=== PATIENT | female | born 1945 | race Two or more races ===

== ENCOUNTER 2024-03-15 08:58 | Emergency (ER) | payer OTHER, MEDICAID ==
[~2024-03-15] VITALS: Ht 152.4 cm; Wt 59.0 kg
[2024-03-15 09:45] VITALS: BP 136/62; PULSE 96; RESP 17; O2SAT 92
[2024-03-15 09:52] LABS: Basophils # (auto) 0 10 ^3/uL (0-0.2); Eosinophils # (auto) 0 10 ^3/uL (0-0.8); Lymphocytes # (auto) 0.2 10 ^3/uL (0.4-5.4); Lymphocytes % (auto) 3.2 % (10.0-50.0); Red Cell Distribution Width 14.6 % (11.8-14.3)
[2024-03-15 09:57] LABS: Basophils % (auto) 0.3 % (0.0-2.0); Hematocrit 38.8 % (36.0-46.0); Hemoglobin 13.6 g/dL (12.2-16.2); Mean Corpuscular Hgb Conc. 34.9 g/dL (32.0-36.0); Mean Corpuscular Volume 91.7 fL (80.0-100.0); Monocytes # (auto) 0.3 10 ^3/uL (0-1.3); Monocytes % (auto) 4.5 % (0.0-12.0); Neutrophils # (auto) 5.1 10 ^3/uL (1.6-8.6); Platelet Count (auto) 70 10^3/uL (140-450); Red Blood Cells 4.23 10^6/uL (4.0-5.20); White Blood Cell 5.5 10^3/uL (4.4-10.8)
[2024-03-15 10:07] LABS: Chloride 99 mmol/L (98-107); Potassium 3.5 mmol/L (3.5-5.1)
[2024-03-15 10:09] LABS: Calcium 9.3 mg/dL (8.7-10.4); Sodium 130 mmol/L (136-145)
[2024-03-15 10:13] LABS: Blood Urea Nitrogen 9 mg/dL (9-23)
[2024-03-15 10:14] LABS: BUN/Creatinine Ratio 10.2 (10.0-20.0)
--- NOTE | 2024-03-15 10:19 | ED.PDOC ---
SOB-HPI HPI Comments This is a pleasant 78-year-old female with a history of hypertension and a rthritis who was brought in by grandson with a chief complaint of URI symptoms for the last two weeks. Complains of a productive cough with yellow phlegm, shortness of breath, malaise, myalgia. Not taking medications for the symptoms. Chief Complaint: Flu like Time Seen by MD: 09:33 Reviewed notes: Nurses Notes, Medications, Allergies Information Source: Patient Mode of Arrival: Wheelchair Family History Family History: Reviewed,noncontributory to illness Social History Smoker: Non-Smoker Alcohol: Denies ETOH Use Drugs: Denies Drug Use All Other Systems: Reviewed and Negative (per hpi) Physical Exam General Appearance: No Apparent Distress, Normal HEENT: Normal ENT Inspection, Pharynx Normal, TMs Normal Neck: Full Range of Motion, Non-Tender, Normal, Normal Inspection Respiratory: Chest Non-Tender, Lungs Clear, No Accessory Muscle Use, No Respiratory Distress, Normal Breath Sounds Cardiovascular: No Edema, No JVD, No Murmur, No Gallop, Normal Peripheral Pulses, Regular Rate/Rhythm Breast Exam: Deferred Gastrointestinal: No Organomegaly, Non Tender, No Pulsatile Mass, Normal Bowel Sounds, Soft Genitalia: Deferred Pelvic: Deferred Rectal: Deferred Extremities: No calf tenderness, Normal capillary refill, Normal inspection, Normal range of motion, Non-tender, No pedal edema Musculoskeletal : Apperance: Normal Neurologic: Alert, No Motor Deficits, Normal Affect, Normal Mood, No Sensory Deficits Cerebellar Function: Normal Reflexes: Normal Skin: Dry, Normal Color, Warm Lymphatic: No Adenopathy Was a procedure done? Was a procedure done?: No Differential Dx Differential Diagnosis: Bronchitis, URI X-Ray, Labs, Meds, VS Vital Signs Date Time Temp Pulse Resp B/P (MAP) Pulse Ox O2 Delivery O2 Flow Rate FiO2 03/15/24 09:45 96 17 92 Room Air 03/15/24 09:45 101.5 96 17 136/62 (86) 92 101.5 03/15/24 09:05 101.5 96 17 136/62 (86) 92 Lab Test 03/15/24 09:38 03/15/24 09:37 Range/Units Influenza Type A Antigen Negative Negative Influenza Type B Antigen Negative Negative SARS-CoV-2 Antigen (Rapid) Positive NEGATIVE White Blood Count 5.5 4.4-10.8 10^3/uL Red Blood Count 4.23 4.0-5.20 10^6/uL Hemoglobin 13.6 12.2-16.2 g/dL Hematocrit 38.8 36.0-46.0 % Mean Corpuscular Volume 91.7 80.0-100.0 fL Mean Corpuscular Hemoglobin 32.0 28.0-32.0 pg Mean Corpuscular Hemoglobin Concent 34.9 32.0-36.0 g/dL Red Cell Distribution Width 14.6 H 11.8-14.3 % Platelet Count 70 L 140-450 10^3/uL Mean Platelet Volume 10.0 6.9-10.8 fL Neutrophils (%) (Auto) 92.0 H 37.0-80.0 % Lymphocytes (%) (Auto) 3.2 L 10.0-50.0 % Monocytes (%) (Auto) 4.5 0.0-12.0 % Eosinophils (%) (Auto) 0.0 0.0-7.0 % Basophils (%) (Auto) 0.3 0.0-2.0 % Neutrophils # (Auto) 5.1 1.6-8.6 10 ^3/uL Lymphocytes # (Auto) 0.2 L 0.4-5.4 10 ^3/uL Monocytes # (Auto) 0.3 0-1.3 10 ^3/uL Eosinophils # (Auto) 0 0-0.8 10 ^3/uL Basophils # (Auto) 0 0-0.2 10 ^3/uL Nucleated Red Blood Cells 0.0 % Sodium Level 130 L 136-145 mmol/L Potassium Level 3.5 3.5-5.1 mmol/L Chloride Level 99 98-107 mmol/L Carbon Dioxide Level 23 20-31 mmol/L Anion Gap 8 5-15 Blood Urea Nitrogen 9 9-23 mg/dL Creatinine 0.88 0.550-1.02 mg/dL Glomerular Filtration Rate Calc 67 >90 mL/min BUN/Creatinine Ratio 10.2 10.0-20.0 Serum Glucose 126 H 74-106 mg/dL Calcium Level 9.3 8.7-10.4 mg/dL X-Ray, Labs, Meds, VS Comment On presentation, the patient is febrile and has stable vital signs. The patient is overall well-appearing nontoxic on exam. On physical exam, respirations even and unlabored, clear to auscultation bilat erally. Oxygen stable on room air. Viral testing done and results show COVID + Chest x-ray obtained and interpreted independently by myself Low suspicion of strep pharyngitis given physical exam findings and patient's presenting symptoms No signs of meningismus on exam Overall, the patient is well hydrated and nontoxic. Empiric tx. Plan for symptomatic control for fever and pain as needed. The patient was able to tolerate p.o. intake in the ED. at this time, patient is safe for discharge home. The exam findings and plan discussed. We will discharge home with PCP follow up and strict return precautions. Discussed that cough can linger up to 6 weeks after viral URI Supportive care and return precautions discussed Counseled viral infection and explained that antibiotics would not be helpful in resolving the illness sooner. Recommended vitamin C, rest, handwashing, and symptomatic care. Expect 2-week course with possibly of cough lingering up to 6 weeks. Nonpharmacological remedies for fluids has been recommended as well Time of 1ST Reevaluation: 10:19 Reevaluation 1ST: Improved Patient Education/Counseling: Diagnosis, Treatment Family Education/Counseling: Diagnosis, Treatment Departure 1 Departure Time of Disposition: 11:33 Impression: Primary Impression: COVID Disposition: 01 HOME / SELF CARE / HOMELESS Condition: Stable e-Prescriptions Benzonatate (Benzonatate) 100 Mg Cap 1 CAP PO TID for 10 Days, #30 CAP 0 Refills Prov: POLY GARCIA ZINC MINER 03/15/24 Acetaminophen (Acetaminophen) 500 Mg Tab 500 MG PO Q6HP PRN for 10 Days, #40 TAB 0 Refills Prov: POLY GARCIA ZINC MINER 03/15/24 Ibuprofen (Ibuprofen) 600 Mg Tab 1 TAB PO TID for 10 Days, #30 TAB 0 Refills Prov: POLY GARCIA NP 03/15/24 Guaifenesin (Mucinex) 600 Mg Tab 1 TAB PO BID for 7 Days, #14 TAB 0 Refills Prov: POLY GARCIA ZINC MINER 03/15/24 Azithromycin (Azithromycin) 250 Mg Tab 250 MG PO DAILY MDD 500 for 5 Days, #6 TAB 0 Refills 2 TABLETS ORALLY ON DAY ONE, THEN 1 TABLET ORALLY DAILY FOR 4 DAYS Prov: POLY GARCIA ZINC MINER 03/15/24 Discharged With: Self Critical Care Note Critical Care Time?: No Stability Stability form required: No Heart Score Heart Score: Heart Score Response (Comments) Value History N/A 0 EKG N/A 0 Age N/A 0 Risk Factors N/A 0 Troponin N/A 0 Total 0 POLY GARCIA NP Mar 15, 2024 10:19
[2024-03-15 10:20] LABS: Glucose 126 mg/dL (74-106)
[2024-03-15 10:30] LABS: Rapid Influenza A Negative (Negative); Rapid Influenza B Negative (Negative)
[2024-03-15 10:38] LABS: COVID19 ANTIGEN SOFIA FIA POSITIVE (NEGATIVE)
[2024-03-15 10:57] LABS: Anion Gap 8 (5-15); Carbon Dioxide 23 mmol/L (20-31)
--- NOTE | 2024-03-15 11:24 | DVH ---
XY CHEST TWO VIEWS ROUTINE CLINICAL HISTORY: cough/fevers COMPARISON: None TECHNIQUE: Frontal and lateral view of the chest was obtained FINDINGS: Lines and Tubes: None Lungs: No focal consolidation. Pleura: No effusion. No pneumothorax. Cardiomediastinal contours: Unremarkable Bones: No acute osseous abnormality. IMPRESSION: No acute cardiopulmonary disease.
[2024-03-15 11:30] VITALS: TEMP 100.8
[2024-03-15] MEDS ORDERED: AZIT-43 PO (11:33)
[2024-03-15] MEDS ORDERED: GUAI600T78 PO (11:33)
[2024-03-15] MEDS ORDERED: IBUP-1454 PO (11:33)
[2024-03-15] MEDS ORDERED: ACET500T58 PO (11:33)
[2024-03-15] MEDS ORDERED: BENZ100C97 PO (11:33)
[2024-03-15] MEDS ORDERED: ALBU108A5 IN (11:37)
== END 2024-03-15 11:40 | disposition home or self-care (01) ==
LOC: ER 08:58
DX: U07.1 COVID-19 (principal); I10 Essential (primary) hypertension; M19.90 Unspecified osteoarthritis, unspecified site
CPT/HCPCS: 36415; 71046; 80048; 85025; 87426; 87804

== ENCOUNTER 2024-03-18 09:51 | Inpatient (IN) | payer OTHER, MEDICAID ==
[~2024-03-18] VITALS: Ht 154.9 cm; Wt 55.5 kg
[~2024-03-18 09:51] MED LIST: ACET500T58 PO; ALBU108A5 IN; AZIT-43 PO; BENZ100C97 PO; GUAI600T78 PO; IBUP-1454 PO
--- NOTE | 2024-03-18 10:03 | ECG ---
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
--- NOTE | 2024-03-18 10:14 | ED.PDOC ---
SOB-HPI HPI Comments 78-year-old female presents with a chief complaint of SOB x onset Friday (03/15/2024). Per family, patient was recently seen here on Friday (03/15/2024) and was prescribes Azithromycin. Patient reports that today she became anxious because she felt like she was not able to take a full breath of air in. Patient is sating at 98% on room air, and requires no supplemental oxygen use. Patient is not cyanotic, but is tachycardic at 121. 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 Hx Family History Family History: Reviewed,noncontributory to illness Social History Smoker: Non-Smoker Alcohol: Denies ETOH Use Drugs: Denies Drug Use Lives In: Home Constitutional: denies: chills, diaphoresis, fatigue, fever, malaise, sweats, weakness, others EENTM: denies: blurred vision, double vision, ear bleeding, ear discharge, ear drainage, ear pain, ear ringing, eye pain, eye redness, hearing loss, mouth pain, mouth swelling, nasal discharge, nose bleeding, nose congestion, nose pain, photophobia, tearing, throat pain, throat swelling, voice changes, others Respiratory: reports: SOB at rest, shortness of breath; denies: cough, hemoptysis, orthopnea, SOB with excertion, stridor, wheezing, others Cardiovascular: denies: chest pain, dizzy spells, diaphoresis, Dyspnea on exertion, edema, irregular heart beat, left arm pain, lightheadedness, palpitations, PND, syncope, others Gastrointestinal: denies: abdomen distended, abdominal pain, blood streaked bowels, constipated, diarrhea, dysphagia, difficulty swallowing, hematemesis, melena, nausea, poor appetite, poor fluid intake, rectal bleeding, rectal pain, vomiting, others Genitourinary: denies: abnormal vagina bleeding, burning, dyspareunia, dysuria, flank pain, frequency, hematuria, incontinence, pain, , vagina discharge, urgency, others Neurological: denies: dizziness, fainting, headache, left sided numbness, left sided weakness, numbness, paresthesia, pre-existing deficit, right sided numbness, right sided weakness, seizure, speech problems, tingling, tremors, weakness, others Musculoskeletal: denies: back pain, gout, joint pain, joint swelling, muscle pain, muscle stiffness, neck pain, others Integumetry: denies: bruises, change in color, change in hair/nails, dryness, laceration, lesions, lumps, rash, wounds, others Allergic/Immunocompromised: denies: Difficulty Healing, Frequent Infections, Hives, Itching, others Hematologic/Lymphatic: denies: anemia, blood clots, easy bleeding, easy bruising, swollen glands, others Endocrine: denies: excessive hunger, excessive sweating, excessive thirst, excessive urination, flushing, intolerance to cold, intolerance to heat, u nexplained weight gain, unexplained weight loss, others Psychiatric: denies: anxiety, bipolar disorder, depression, hopeless, panic disorder, schizophrenia, sleepless, suicidal, others All Other Systems: Reviewed and Negative Physical Exam General Appearance: No Apparent Distress, Normal HEENT: Normal ENT Inspection, Pharynx Normal, TMs Normal Neck: Full Range of Motion, Non-Tender, Normal, Normal Inspection Respiratory: Chest Non-Tender, Lungs Clear, No Accessory Muscle Use, No Respiratory Distress, Normal Breath Sounds Cardiovascular: No Edema, No JVD, No Murmur, No Gallop, Normal Peripheral P ulses, Tachycardia (IRREGULAR) Breast Exam: Deferred Gastrointestinal: No Organomegaly, Non Tender, No Pulsatile Mass, Normal Bowel Sounds, Soft Genitalia: Deferred Pelvic: Deferred Rectal: Deferred Extremities: No calf tenderness, Normal capillary refill, Normal inspection, Normal range of motion, Non-tender, No pedal edema Musculoskeletal : Apperance: Normal Neurologic: Alert, legislative director II-XII nml as Tested, No Motor Deficits, Normal Affect, Normal Mood, No Sensory Deficits Cerebellar Function: Normal Reflexes: Normal Skin: Dry, Normal Color, Warm Lymphatic: No Adenopathy EKG EKG : Pulse Rate (adult): 121 [place]: Normal Cardiac Rhythm: ST Block: None Hypertrophy: None ST: Normal Comments Second EKG: Normal Sinus Rhythm at 77 BPM Was a procedure done? Was a procedure done?: No Differential Dx Differential Diagnosis: Anxiety, Asthma, Bronchitis, CHF, COPD, Hyperventilation, Myocardial infarction, Panic Attack, Pneumonia, Pneumothorax, Pulmonary Embolism, Respiratory Distress, URI X-Ray, Labs, Meds, VS Vital Signs Date Time Temp Pulse Resp B/P (MAP) Pulse Ox O2 Delivery O2 Flow Rate FiO2 03/18/24 12:00 74 03/18/24 12:00 74 13 112/67 (82) 100 03/18/24 11:37 77 03/18/24 11:30 86 14 104/68 (80) 100 03/18/24 11:20 Nasal Cannula* 2 28 03/18/24 10:50 85 18 85 Room Air 03/18/24 10:50 85 18 121/79 (93) 96 03/18/24 10:14 121 03/18/24 10:08 16 98 Room Air* 0 21 03/18/24 10:08 99.0 83 16 107/75 (86) 98 Lab Test 03/18/24 11:24 03/18/24 10:00 Range/Units Troponin I High Sensitivity 12 12 </=34 ng/L White Blood Count 6.0 4.4-10.8 10^3/uL Red Blood Count 4.77 4.0-5.20 10^6/uL Hemoglobin 15.0 12.2-16.2 g/dL Hematocrit 43.7 # 36.0-46.0 % Mean Corpuscular Volume 91.6 80.0-100.0 fL Mean Corpuscular Hemoglobin 31.4 28.0-32.0 pg Mean Corpuscular Hemoglobin Concent 34.3 32.0-36.0 g/dL Red Cell Distribution Width 14.3 11.8-14.3 % Platelet Count 135 L 140-450 10^3/uL Mean Platelet Volume 9.6 6.9-10.8 fL Neutrophils (%) (Auto) 78.9 37.0-80.0 % Lymphocytes (%) (Auto) 14.3 10.0-50.0 % Monocytes (%) (Auto) 5.7 0.0-12.0 % Eosinophils (%) (Auto) 0.8 0.0-7.0 % Basophils (%) (Auto) 0.3 0.0-2.0 % Neutrophils # (Auto) 4.7 1.6-8.6 10 ^3/uL Lymphocytes # (Auto) 0.9 0.4-5.4 10 ^3/uL Monocytes # (Auto) 0.3 0-1.3 10 ^3/uL Eosinophils # (Auto) 0 0-0.8 10 ^3/uL Basophils # (Auto) 0 0-0.2 10 ^3/uL Nucleated Red Blood Cells 0.1 % Prothrombin Time 10.8 9.3-11.8 sec Prothrombin Time INR 1.02 0.9-1.15 Activated Partial Thromboplast Time 28.3 24.5-34.5 SEC D-Dimer, Quantitative 0.98 H 0.0-0.49 mg/L FEU Sodium Level 131 L 136-145 mmol/L Potassium Level 3.5 3.5-5.1 mmol/L Chloride Level 101 98-107 mmol/L Carbon Dioxide Level 24 20-31 mmol/L Anion Gap 6 5-15 Blood Urea Nitrogen 8 L 9-23 mg/dL Creatinine 0.89 0.550-1.02 mg/dL Glomerular Filtration Rate Calc 66 >90 mL/min BUN/Creatinine Ratio 9.0 L 10.0-20.0 Serum Glucose 108 H 74-106 mg/dL Calcium Level 9.5 8.7-10.4 mg/dL Total Bilirubin 1.1 H 0.2-1.0 mg/dL Aspartate Amino Transferase (AST) 60 H 13-40 U/L Alanine Aminotransferase (ALT) 49 H 7-40 U/L Alkaline Phosphatase 220 H 46-116 U/L B-Type Natriuretic Peptide 228.86 0-100 pg/mL Total Protein 7.9 5.7-8.2 g/dL Albumin 3.5 3.2-4.8 g/dL Current Medications Medications (Trade) Dose Ordered Sig/Shaista Route Start Time Stop Time Status Last Admin Sodium Chloride 500 ml @ 500 mls/hr Q1H ONCE IV 03/18/24 12:00 03/18/24 12:59 03/18/24 12:49 Time of 1ST Reevaluation: 10:30 Reevaluation 1ST: Unchanged Patient Education/Counseling: Diagnosis, Treatment, Prognosis Family Education/Counseling: Diagnosis, Treatment, Prognosis Comments The following tests were ordered, and results were reviewed by me: BMP, CBC, BNP, Troponin, D-Dimer, CXR Additional Information was gathered from interviewing the following independent historians: Family I reviewed and agreed with the following test results read by other providers: CXR I discussed treatment and results with medical personnel and: Family Departure 1 Departure Time of Disposition: 12:51 Impression: Primary Impression: COVID Disposition: 09 ADMITTED INPATIENT Admit to: Med Surg Condition: Stable Discharged With: Self Critical Care Note Critical Care Time?: Yes (45 min-critical care time only) Critical care comment: Due to concerns for patients condition deteriorating, the care required my highest level of attention and readiness to intervene. I assessed the patient, reviewed the medical records, ordered the appropriate tests and treatments, then reassessed for results and responsiveness. I communicated with medical personnel and consultants and formulated a plan of care. Total critical care time excludes any procedures Stability Stability form required: No Heart Score Heart Score: Heart Score Response (Comments) Value History N/A 0 EKG N/A 0 Age N/A 0 Risk Factors N/A 0 Troponin N/A 0 Total 0 I personally scribed for MIKHAIL CASTILLO MD ([email or web address]) on 03/18/24 at 10:14. Electronically submitted by Saul Sharma ([email or web address]). I personally scribed for MIKHAIL CASTILLO MD ([email or web address]) on 03/18/24 at 11:41. Electronically submitted by Saul Sharma ([email or web address]). MIKHAIL CASTILLO MD Mar 18, 2024 10:14
[2024-03-18] MEDS ORDERED: IPRATROPIUM BROM 0.5 MG/2.5ML INH SOL NEB ONE (10:15)
[2024-03-18] MEDS ORDERED: ALBUTEROL SULF 2.5 MG/0.5ML(0.5%) NEB SOLN NEB ONE (10:15)
--- NOTE | 2024-03-18 10:25 | DVH ---
EXAM: XY CHEST PORTABLE Indication: sob Technique: Single frontal view of the chest was obtained Comparison: None FINDINGS: Lines and Tubes: None Lungs: No focal consolidation. Pleura: No effusion. No pneumothorax. Cardiomediastinal contours: Unremarkable. Atherosclerotic vascular calcifications of the thoracic ao rta are noted. Bones: No acute osseous abnormality. IMPRESSION: No acute cardiopulmonary disease.
[2024-03-18 10:31] LABS: Basophils # (auto) 0 10 ^3/uL (0-0.2); Basophils % (auto) 0.3 % (0.0-2.0); Eosinophils # (auto) 0 10 ^3/uL (0-0.8); Eosinophils % (auto) 0.8 % (0.0-7.0); Hematocrit 43.7 % (36.0-46.0); Lymphocytes # (auto) 0.9 10 ^3/uL (0.4-5.4); Lymphocytes % (auto) 14.3 % (10.0-50.0); Mean Corpuscular Hemoglobin 31.4 pg (28.0-32.0); Mean Corpuscular Hgb Conc. 34.3 g/dL (32.0-36.0); Mean Corpuscular Volume 91.6 fL (80.0-100.0); Monocytes # (auto) 0.3 10 ^3/uL (0-1.3); Monocytes % (auto) 5.7 % (0.0-12.0); Neutrophils # (auto) 4.7 10 ^3/uL (1.6-8.6); Neutrophils % (auto) 78.9 % (37.0-80.0); Nucleated Red Blood Cells % 0.1 %; Platelet Count (auto) 135 10^3/uL (140-450); Red Blood Cells 4.77 10^6/uL (4.0-5.20); Red Cell Distribution Width 14.3 % (11.8-14.3)
[2024-03-18 10:45] LABS: INR 1.02 (0.9-1.15); Partial Thromboplastin Time 28.3 SEC (24.5-34.5); Prothrombin Time 10.8 sec (9.3-11.8)
[2024-03-18] MEDS ORDERED: ALBUTEROL SULF HFA 90MCG INH 200DOSE IN PRN (10:45)
[2024-03-18 10:51] LABS: Albumin 3.5 g/dL (3.2-4.8); Anion Gap 6 (5-15); Bilirubin, Total 1.1 mg/dL (0.2-1.0); Calcium 9.5 mg/dL (8.7-10.4); Carbon Dioxide 24 mmol/L (20-31); Chloride 101 mmol/L (98-107); Potassium 3.5 mmol/L (3.5-5.1); Total Protein 7.9 g/dL (5.7-8.2)
[2024-03-18 10:55] LABS: Alanine Aminotransferase 49 U/L (7-40); Alkaline Phosphatase 220 U/L (46-116); Aspartate Aminotransferase 60 U/L (13-40); Blood Urea Nitrogen 8 mg/dL (9-23); Glucose 108 mg/dL (74-106); Sodium 131 mmol/L (136-145)
[2024-03-18] MEDS: AMIODARONE BOLUS KIT 100 ML IV ONE (11:44)
[2024-03-18] MEDS: AMIODARONE 360mg/200mL PREMIX 200 ML IV ONE (11:45)
[2024-03-18] MEDS: SODIUM CHLORIDE 0.9% 500 ML IV ONE (12:49)
[2024-03-18] MEDS: IOHEXOL 350 MG/ML 100ML IJ ONE (14:31)
--- NOTE | 2024-03-18 15:16 | DVH ---
CTA Chest with intravenous contrast INDICATION: r/o pe COMPARISON: None TECHNIQUE: Multidetector spiral CTA of the chest was performed of the chest with intravenous contrast . PULMONARY ANGIOGRAPHY PROTOCOL was utilized using a bolus-tracking technique centered on the main p ulmonary artery. Axial, coronal and sagittal multiplanar and MIP reformats were performed. CONTRAST: Type of contrast: Omni 350 Contrast injected: 100 ml Radiation dose : Chest: CTDI volume is 29 mGy. Dose-length product is 319 mGy*cm The dose indicators for CT are the volume computed Tomography (CT) dose Index (CTDIvol) and the dose Length product (DLP), and are measured in units of mGy and mGy-cm, respectively. These indicators are not patient dose, but values generated from the CT scanner acquisition factors. The report includes radiation exposure data for exposures received during this examination. Findings: Pulmonary artery: No pulmonary embolism Lower neck: Thyroid is enlarged and heterogeneous with cysts and nodules. Lungs: Patchy nodular airspace disease in the right upper and bilateral lower lungs. Heart/Vascular Structures: Normal heart size. Small pericardial effusion. Lymph Nodes: Mediastinal and bilateral hilar lymphadenopathy. Pleura: No pleural effusion or significant pneumothorax. Musculoskeletal: No acute osseous abnormality. Soft tissues: Normal. Upper abdomen: Left renal cyst. IMPRESSION: 1. No pulmonary embolism. 2. Patchy bilateral pneumonia. Small pericardial effusion. Mediastinal and bilateral hilar lymphaden opathy. Clinical correlation and continued follow-up is recommended. 3. Enlarged and heterogeneous thyroid with multiple cysts and nodules. Consider further evaluation w ith thyroid ultrasound. HS:Y
[2024-03-18] MEDS: cefTRIAXone 1GM/50ML D5W 50 ML IV ONE (16:04)
[2024-03-18] MEDS: AZITHROMYCIN 500MG/ 250ML 250 ML IV ONE (16:18)
[2024-03-18 21:00] VITALS: BP 110/54; PULSE 72; RESP 12; TEMP 98.9; O2SAT 100
[2024-03-18] MEDS: FUROSEMIDE 20 MG/2 ML VIAL IV ONE (21:00)
[2024-03-18] MEDS ORDERED: HYDROcodone-ACET 5/325MG TAB PO PRN (21:00)
[2024-03-18] MEDS ORDERED: ONDANSETRON HCL 4 MG/2 ML VIAL IV PRN (21:00)
[2024-03-18] MEDS ORDERED: DOCUSATE SOD 100 MG CAP PO PRN (21:00)
--- NOTE | 2024-03-18 21:35 | DVHHP2 ---
History of Present Illness Reason for Visit: Pneumonia, unspecified organisms History of Present Illness The patient is a 78-year-old female with past medical history of asthma presented to [facility] ED with complaint of shortness of breaths. Patient reports symptoms progressively get worse with anxious, SOB at rest, increased work of breathing, getting worse that prompted this visit. Patient was seen and evaluated in the ED, laboratory data shows WBC 6.0, platelets 135, sodium 131, potassium 3.5, BUN 8, creatinine 0.89, GFR 66, glucose 108, D-dimer 0.98, AST 60, ALT 49, BNP 228.86, troponin 10. CT Angiography revealing patchy bilateral pneumonia, small pericardial effusion, mediastinal bilateral hilar lymphadenopathy, enlarged and heterogeneous thyroid with multiple cysts and nodules; no pulmonary embolism. Patient was started on IV antibiotic regimen azithromycin, please see medication orders section in the computer. On my assessment, patient denied chest pain no headache, no dizziness, currently on oxygen, no abdominal pain, no diarrhea, no nausea, no vomiting, no fever, no chills. Patient was admitted for further evaluation and medical management. Past Medical History Asthma Past Surgical History Denies all surgeries Family History Reviewed, noncontributory to the management of this case. Past Social History The patient lives at home, denies smoking, alcohol or illicit drugs abuse. Review of Systems Constitutional: Yes: Weakness; No: Fever, Chills, Sweats, Malaise, Other Eyes: No: Pain, Vision change, Conjunctivae inflammation, Eyelid inflammation, Other, Redness ENT: No: Ear pain, Ear discharge, Nose pain, Nose discharge, Nose congestion, Mouth pain, Mouth swelling, Throat pain, Throat swelling, Other Respiratory: Shortness of breath, SOB with excertion, Other (SOB at rest); No: Cough, Dry, Wheezing, Hemoptysis, Pleuritic Pain, Sputum, Wheezing Cardiovascular: No: Chest Pain, Palpitations, Orthopnea, Paroxysmal Noc. Dyspnea, Edema, Lt Headedness, Other Gastrointestinal: No: Nausea, Vomiting, Abdominal Pain, Diarrhea, Constipation, Melena, Hematochezia, Other Genitourinary: No Dysuria, No Frequency, No Incontinence, No Hematuria, No Retention, No Other Musculoskeletal: No: other, neck pain, shoulder pain, arm pain, back pain, hand pain, leg pain, foot pain Skin: No: Rash, Lesions, Jaundice, Bruising, Other Neurological: No: Weakness, Numbness, Incoordination, Change in speech, Confusion, Seizures, Other Allergies: Coded Allergies: NO KNOWN ALLERGIES (Unverified , 03/15/24) Medications Current Medications Medications Dose Ordered Sig/Shaista Route Start Time Stop Time Status Last Admin Dose Admin Albuterol 90 mcg TID PRN IN 03/18/24 10:45 Azithromycin 250 ml @ 125 mls/hr DAILY IV 03/19/24 10:00 UNV Ibuprofen 600 mg Q6HP PRN PO 03/18/24 21:00 UNV Furosemide 20 mg DAILY IV 03/19/24 10:00 UNV Sodium Chloride 10 ml Q8HR IV 03/18/24 22:00 UNV Acetaminophen/ Hydrocodone Bitart 1 tab Q4HP PRN PO 03/18/24 21:00 UNV Ondansetron HCl 4 mg Q4HP PRN IV 03/18/24 21:00 UNV Docusate Sodium 100 mg BIDPRN PRN PO 03/18/24 21:00 UNV Exam Vital Signs Vital Signs Date Time Temp Pulse Resp B/P (MAP) Pulse Ox O2 Delivery O2 Flow Rate FiO2 03/18/24 21:00 100 Nasal Cannula* 2 28 03/18/24 21:00 98.9 72 12 110/54 98.9 General Appearance: Alert, Oriented X3, Cooperative, No acute distress HEENT: Atraumatic, PERRLA, EOMI, Mucous membr. moist/pink Respiratory: Normal air movement, Other (Diminished breath sounds) Cardiovascular: Regular rate, Normal S1, Normal S2, No murmurs Abdominal: Normal bowel sounds, Soft, No tenderness, No hepatospenomegaly, No masses Extremities: No clubbing, No cyanosis, No edema, Normal pulses, No tenderness/swelling Skin: No rashes, No significant lesion Neuro: Normal speech, Normal tone, Sensation intact, Cranial nerves 3-12 NL, Reflexes 2+, Other (Generalized weakness) Psych/Mental Status: Mental status NL, Mood NL Labs/Xrays Labs Test 03/18/24 13:56 03/18/24 10:00 Range/Units Troponin I High Sensitivity 10 </=34 ng/L White Blood Count 6.0 4.4-10.8 10^3/uL Red Blood Count 4.77 4.0-5.20 10^6/uL Hemoglobin 15.0 12.2-16.2 g/dL Hematocrit 43.7 # 36.0-46.0 % Mean Corpuscular Volume 91.6 80.0-100.0 fL Mean Corpuscular Hemoglobin 31.4 28.0-32.0 pg Mean Corpuscular Hemoglobin Concent 34.3 32.0-36.0 g/dL Red Cell Distribution Width 14.3 11.8-14.3 % Platelet Count 135 L 140-450 10^3/uL Mean Platelet Volume 9.6 6.9-10.8 fL Neutrophils (%) (Auto) 78.9 37.0-80.0 % Lymphocytes (%) (Auto) 14.3 10.0-50.0 % Monocytes (%) (Auto) 5.7 0.0-12.0 % Eosinophils (%) (Auto) 0.8 0.0-7.0 % Basophils (%) (Auto) 0.3 0.0-2.0 % Neutrophils # (Auto) 4.7 1.6-8.6 10 ^3/uL Lymphocytes # (Auto) 0.9 0.4-5.4 10 ^3/uL Monocytes # (Auto) 0.3 0-1.3 10 ^3/uL Eosinophils # (Auto) 0 0-0.8 10 ^3/uL Basophils # (Auto) 0 0-0.2 10 ^3/uL Nucleated Red Blood Cells 0.1 % Prothrombin Time 10.8 9.3-11.8 sec Prothrombin Time INR 1.02 0.9-1.15 Activated Partial Thromboplast Time 28.3 24.5-34.5 SEC D-Dimer, Quantitative 0.98 H 0.0-0.49 mg/L FEU Sodium Level 131 L 136-145 mmol/L Potassium Level 3.5 3.5-5.1 mmol/L Chloride Level 101 98-107 mmol/L Carbon Dioxide Level 24 20-31 mmol/L Anion Gap 6 5-15 Blood Urea Nitrogen 8 L 9-23 mg/dL Creatinine 0.89 0.550-1.02 mg/dL Glomerular Filtration Rate Calc 66 >90 mL/min BUN/Creatinine Ratio 9.0 L 10.0-20.0 Serum Glucose 108 H 74-106 mg/dL Calcium Level 9.5 8.7-10.4 mg/dL Total Bilirubin 1.1 H 0.2-1.0 mg/dL Aspartate Amino Transferase (AST) 60 H 13-40 U/L Alanine Aminotransferase (ALT) 49 H 7-40 U/L Alkaline Phosphatase 220 H 46-116 U/L B-Type Natriuretic Peptide 228.86 0-100 pg/mL Total Protein 7.9 5.7-8.2 g/dL Albumin 3.5 3.2-4.8 g/dL PATIENT: MATTHEW PRADOT: [id number] UNIT: [id number] : 1945 LOC: ER ROOM / BED: / AGE / SEX: 78 / F ADM STATUS: REG ER SERVICE 1150 ORDERING PHYSICIAN: MIKHAIL CASTILLO MD PROCEDURE(s): CTACH - CT ANGIO CHEST CONTRAST REASON: r/o pe ORDER NUMBER(s): [id number], ACCESSION NUMBER(s): [id number] CTA Chest with intravenous contrast INDICATION: r/o pe COMPARISON: None TECHNIQUE: Multidetector spiral CTA of the chest was performed of the chest with intravenous contrast. PULMONARY ANGIOGRAPHY PROTOCOL was utilized using a bolus- tracking technique centered on the main pulmonary artery. Axial, coronal and sagittal multiplanar and MIP reformats were performed. CONTRAST: Type of contrast: Omni 350 Contrast injected: 100 ml Radiation dose : Chest: CTDI volume is 29 mGy. Dose-length product is 319 mGy*cm The dose indicators for CT are the volume computed Tomography (CT) dose Index (CTDIvol) and the dose Length product (DLP), and are measured in units of mGy and mGy-cm, respectively. These indicators are not patient dose, but values generated from the CT scanner acquisition factors. The report includes radiation exposure data for exposures received during this examination. Findings: Pulmonary artery: No pulmonary embolism Lower neck: Thyroid is enlarged and heterogeneous with cysts and nodules. Lungs: Patchy nodular airspace disease in the right upper and bilateral lower lungs. Heart/Vascular Structures: Normal heart size. Small pericardial effusion. Lymph Nodes: Mediastinal and bilateral hilar lymphadenopathy. Pleura: No pleural effusion or significant pneumothorax. Musculoskeletal: No acute osseous abnormality. Soft tissues: Normal. Upper abdomen: Left renal cyst. IMPRESSION: 1. No pulmonary embolism. 2. Patchy bilateral pneumonia. Small pericardial effusion. Mediastinal and bilateral hilar lymphadenopathy. Clinical correlation and continued follow-up is recommended. 3. Enlarged and heterogeneous thyroid with multiple cysts and nodules. Consider further evaluation with thyroid ultrasound. ORDERING PHYSICIAN: MIKHAIL CASTILLO MD PROCEDURE(s): CXRP - CHEST PORTABLE REASON: sob ORDER NUMBER(s): [id number], ACCESSION NUMBER(s): [id number] EXAM: XY CHEST PORTABLE Indication: sob Technique: Single frontal view of the chest was obtained Comparison: None FINDINGS: Lines and Tubes: None Lungs: No focal consolidation. Pleura: No effusion. No pneumothorax. Cardiomediastinal contours: Unremarkable. Atherosclerotic vascular calcifications of the thoracic aorta are noted. Bones: No acute osseous abnormality. IMPRESSION: No acute cardiopulmonary disease. Assessment/Plan Assessment/Plan Acute respiratory distress Pneumonia, unspecified organism Elevated BNP Elevated D-dimer Elevated liver enzymes Generalized weakness Plan 1. Admit to telemetry units 2. Breathing treatment 3. Pain control management 4. IV antibiotic management 5. Management of fluids and electrolytes 6. Consultation for pediatrics hospitalist 7. Diagnostic test CT Angiography 8. DVT prophylaxis-on SCDs 9. Repeat labs CBC, CMP in a.m. 10. Home medication reviewed and reconciled 11. Continue with current medical management 12. Treatment plan discussed with patient and RN. Patient verbalized understanding. Plan discussed with: Patient, Other (RN) My Orders Orders - RIKY DYER DNP Procedure Category Date Status Time Azithromycin 500mg/ PHA 03/19/24 Logged 250ml (Zithromax 50 10:00 Ibuprofen Tablet PHA 03/18/24 Logged (Motrin Tablet) 21:00 *Consult CONS 03/18/24 Transmitted / 20:58 Furosemide Injection PHA 03/18/24 Logged (Lasix Injection) 21:00 Furosemide Injection PHA 03/19/24 Logged (Lasix Injection) 10:00 Allergies CODY 03/18/24 In Process 20:58 Code Status CODE 03/18/24 Transmitted 20:58 Sodium Chloride Lock PHA 03/18/24 Logged (Saline Lock Ns) 22:00 Oxygen Per Hour RT 03/18/24 Transmitted 20:58 Hydrocodone-Acet PHA 03/18/24 Logged 5/325mg Tab ([facility] 21:00 Ondansetron Hcl PHA 03/18/24 Logged (Zofran) 21:00 Docusate Sodium PHA 03/18/24 Logged Capsule (Colace 21:00 Complete Blood Count LAB 03/19/24 Verified 04:00 Comprehensive LAB 03/19/24 Verified Metabolic Panel 04:00 Cardiac DIET 03/19/24 Transmitted Diet-2gna,Lofat,Lochol Breakfast Echo 2d Mode Cardiac US 03/18/24 Logged DOP 20:58 Condition: Serious CODY 03/18/24 In Process 20:58 Bedrest With Bathroom CODY 03/18/24 In Process Privileg 20:58 Sequential CODY 03/18/24 In Process Compression Device Problem List: (1) Acute respiratory distress (2) Pneumonia, unspecified organism (3) Elevated d-dimer (4) Elevated liver enzymes (5) Elevated brain natriuretic peptide (BNP) level (6) Generalized weakness Date of Service: Mar 18, 2024 Billing Provider: RIKY DYER DNP Common Visit Codes: [id number] INP/OBS CARE (HIGH) RIKY DYER DNP Mar 18, 2024 21:35
[2024-03-18] MEDS ORDERED: NITROGLYCERIN 0.4 MG SL TAB SL PRN (21:45)
[2024-03-18] MEDS ORDERED: MORPHINE SULFATE INJ 2 MG/ml SYRG IV PRN (21:45)
[2024-03-18] MEDS: SODIUM CHLOR 0.9% PF (SALINE LOCK) 10ML VIAL/SYR IV SCH (22:03)
[2024-03-18 23:00] VITALS: PULSE 66; RESP 12; O2SAT 100
--- NOTE | 2024-03-18 23:04 | DVH ---
ULTRASOUND SOFT TISSUE HEAD AND NECK CLINICAL INDICATION: Thyroid nodules TECHNIQUE: Multiple real time sonographic images of the thyroid were obtained. Comparison: None FINDINGS: The right thyroid gland measures 4.4 x 1.9 x 2.1 cm. The left thyroid gland measures approximately 4.1 x 2.2 x 2.0 cm. The isthmus measures 0.4 cm. 1.6 x 1.4 x 1.9 cm hypoechoic peripherally calcified nodule in the midpole of the right thyroid lobe. 1.8 x 1.4 x 1.3 cm mixed solid and cystic nodule in the upper pole of the left thyroid lobe. 1.7 x 1.7 x 1.5 cm mixed solid and cystic nodule in the lower pole of the left thyroid lobe. IMPRESSION: Multiple complex thyroid nodules are seen, the most suspicious located in the right thyroid lobe sarahi uring up to 1.9 cm with peripheral calcifications (TR 4 ). Recommend fine-needle aspiration of this n odule. Additionally, a follow-up thyroid ultrasound should be obtained in 12 months to follow-up the 2 left- sided nodules. [employer] TI-RADS Categories and Recommendations (2017): TR1: 0 points, Benign, No FNA TR2: 2 points, Not suspicious, No FNA TR3: 3 points, Mildly suspicious, FNA if > or = 2.5 cm, Follow if > or = 1.5 cm TR4: 4-6 points, Moderately Suspicious, FNA if > or = 1.5 cm, Follow if > or = 1.0 cm TR5: 7+ points, Highly Suspicious, FNA if > or = 1.0 cm, Follow if > or = 0.5 cm Follow-up ultrasound guidelines: TR5: yearly for 5 years, if no growth or change in TI-RADS level TR4: at 1, 2, 3 and 5 years, if no growth or change in TI-RADS level TR3: at 1, 3 and 5 years, if no growth or change in TI-RADS level If increased but below threshold for FNA, repeat in one year. Source: ACR Thyroid Imaging, Reporting and Data System (TI-RADS): White Paper of the ACR TI-RADS Committee. Baldo et al., J Am Tr Radiol 2017;14:587-595.
[2024-03-19] VITALS (10 sets, daily range): BP systolic 112–115; BP diastolic 61–62; PULSE 59–75; RESP 11–20; TEMP 97.8–98.4; O2SAT 97–100
[2024-03-19 03:38] LABS: Rapid Influenza A Negative (Negative); Rapid Influenza B Negative (Negative)
[2024-03-19 03:39] LABS: COVID19 ANTIGEN SOFIA FIA NEGATIVE (NEGATIVE)
[2024-03-19 05:48] LABS: Basophils # (auto) 0 10 ^3/uL (0-0.2); Basophils % (auto) 0.5 % (0.0-2.0); Eosinophils # (auto) 0.1 10 ^3/uL (0-0.8); Eosinophils % (auto) 2.9 % (0.0-7.0); Hematocrit 35.3 % (36.0-46.0); Lymphocytes # (auto) 1.3 10 ^3/uL (0.4-5.4); Lymphocytes % (auto) 24.9 % (10.0-50.0); Mean Corpuscular Hemoglobin 31.5 pg (28.0-32.0); Mean Corpuscular Hgb Conc. 34.1 g/dL (32.0-36.0); Mean Corpuscular Volume 92.4 fL (80.0-100.0); Monocytes # (auto) 0.7 10 ^3/uL (0-1.3); Monocytes % (auto) 13.3 % (0.0-12.0); Neutrophils % (auto) 58.4 % (37.0-80.0); Nucleated Red Blood Cells % 0.1 %; Platelet Count (auto) 123 10^3/uL (140-450); Red Blood Cells 3.82 10^6/uL (4.0-5.20); Red Cell Distribution Width 14.6 % (11.8-14.3); White Blood Cell 5.1 10^3/uL (4.4-10.8)
[2024-03-19 06:06] LABS: Alanine Aminotransferase 38 U/L (7-40); Anion Gap 5 (5-15); Aspartate Aminotransferase 39 U/L (13-40); BUN/Creatinine Ratio 10.4 (10.0-20.0); Bilirubin, Total 0.7 mg/dL (0.2-1.0); Blood Urea Nitrogen 10 mg/dL (9-23); Calcium 9.5 mg/dL (8.7-10.4); Carbon Dioxide 27 mmol/L (20-31); Chloride 103 mmol/L (98-107); Glucose 88 mg/dL (74-106); Total Protein 6.8 g/dL (5.7-8.2)
[2024-03-19 06:20] LABS: Alkaline Phosphatase 176 U/L (46-116); Potassium 3.5 mmol/L (3.5-5.1); Sodium 135 mmol/L (136-145)
[2024-03-19 06:27] LABS: Albumin 3.2 g/dL (3.2-4.8)
[2024-03-19] MEDS ORDERED: AZITHROMYCIN 500MG/ 250ML 250 ML IV SCH (10:00)
[2024-03-19] MEDS: FUROSEMIDE 20 MG/2 ML VIAL IV SCH (11:55)
--- NOTE | 2024-03-19 15:58 | DVHSR ---
APPROVED REPORT EXAM: Two-dimensional and M-mode echocardiogram with Doppler and color Doppler. Blood Pressure: 110/54 mmHg INDICATION Elevated BNP RISK FACTORS Height: 60, Weight: 137 DIMENSIONS LVDd4.3 (3.8-5.7cm)LA (2D)4.8 (1.9-4.0cm)Aortic Root3.6 (2.0-3.7cm) LVDs3.0 (2.5-4.0cm)LA (MM) (1.9-4.0cm)Aortic Cusp Exc1.5 (1.5-2.0cm) EF (%) 60.0 (55-70%)Rt. Atrium3.5 (1.9-4.0cm)Asc. Aorta cm IVSd0.9 (0.7-1.1cm)RV (D) (1.8-2.4cm) PWd1.2 (0.7-1.1cm) Mitral Valve MitralMitral Stenosis E wave0.68m/sMV Mean GR.mmHg A wave0.54m/sMV Peak GR.83mmHg E/A ratio1.32D MVAcm2 DECEL [id number] 1/2 [id number] IVRTmsDop MVA2.41cm2 Aortic Valve Aortic ValveAortic Stenosis V10.81m/Zafar Mean GR.2mmHg V20.96m/Zafar Peak GR.4mmHg LVOT Diameter2.0 (1.8-2.4cm)Doppler AVA2.65cm2 Pulmonic Valve V20.74m/s Tricuspid Valve TR Velocity2.39m/s [id number] Conclusion lvef 65% normal lv function grade 1 diastolic dysfunction normal rv function left atrium enlarged mild no severe valve abnormalities noted trivial pericardial effusion noted
[2024-03-19] MEDS: IBUPROFEN 600 MG TAB PO PRN (16:41)
--- NOTE | 2024-03-19 18:02 | DVHPNRES ---
Progress Note Date Seen: Mar 19, 2024 Resident Creating Document: AFUA CONDE RESIDENT Has the PT tested + for MRSA If YES, has PT been informed?: No Medical Necessity Reason Pt with a Central, PICC or Fol: No Medical Necessity Reason Pneumonia Subjective Review of Systems This is a 78-year-old female with past medical history of HTN, DM, HLD, asthma and arthritis presented to [facility] ED with complaint of shortness of breaths. Patient reported that her symptoms progressively became worse with shortness of breaths at rest. Thus prompting the patient to come to the ED. of note the patient was here on March 15 with similar presentation of shortness of breaths where she had tested positive for COVID. Denied fever chills nausea shortness of breath at home however she mentioned that when she presented to the ED she was found to have a little bit of fever. In the ED, initial vitals normal. laboratory data showed WBC 6.0, platelets 135, sodium 131, potassium 3.5, BUN 8, creatinine 0.89, GFR 66, glucose 108, D-dimer 0.98, AST 60, ALT 49, BNP 228.86, troponin 10. CT Angiography revealed patchy bilateral pneumonia, small pericardial effusion, mediastinal bilateral hilar lymphadenopathy, enlarged and heterogeneous thyroid with multiple cysts and nodules; no pulmonary embolism. Patient was started on IV azithromycin and Ceftriaxone. Constitutional: Yes: Weakness; No: Fever, Chills, Sweats, Malaise, Other Eyes: No: Pain, Vision change, Conjunctivae inflammation, Eyelid inflammation, Other, Redness ENT: No: Ear pain, Ear discharge, Nose pain, Nose discharge, Nose congestion, Mouth pain, Mouth swelling, Throat pain, Throat swelling, Other Respiratory: Shortness of breath, SOB with excertion, Other (SOB at rest); No: Cough, Dry, Wheezing, Hemoptysis, Pleuritic Pain, Sputum, Wheezing Cardiovascular: No: Chest Pain, Palpitations, Orthopnea, Paroxysmal Noc. Dyspnea, Edema, Lt Headedness, Other Gastrointestinal: No: Nausea, Vomiting, Abdominal Pain, Diarrhea, Constipation, Melena, Hematochezia, Other Genitourinary: No Dysuria, No Frequency, No Incontinence, No Hematuria, No Retention, No Other Musculoskeletal: No: other, neck pain, shoulder pain, arm pain, back pain, hand pain, leg pain, foot pain Skin: No: Rash, Lesions, Jaundice, Bruising, Other Neurological: No: Weakness, Numbness, Incoordination, Change in speech, Confusion, Seizures, Other Objective vital signs Vital Sign Date Time Temp Pulse Resp B/P (MAP) Pulse Ox O2 Delivery O2 Flow Rate FiO2 03/19/24 16:00 63 03/19/24 13:55 11 99 Nasal Cannula* 2 28 03/19/24 13:48 98.3 149/77 (101) 98.3 Total Intake and Output 03/18/24 03/18/24 03/19/24 15:00 23:00 07:00 Intake Total 500 ml 300 ml Balance 500 ml 300 ml medications Current Medications Medications Dose Ordered Sig/Shaista Route Start Time Stop Time Status Last Admin Dose Admin Albuterol 90 mcg TID PRN IN 03/18/24 10:45 Azithromycin 250 ml @ 125 mls/hr DAILY IV 03/19/24 10:00 Hold Ibuprofen 600 mg Q6HP PRN PO 03/18/24 21:00 03/19/24 16:41 600 MG Furosemide 20 mg DAILY IV 03/19/24 10:00 03/19/24 11:55 20 MG Sodium Chloride 10 ml Q8HR IV 03/18/24 22:00 03/19/24 13:58 10 ML Acetaminophen/ Hydrocodone Bitart 1 tab Q4HP PRN PO 03/18/24 21:00 Ondansetron HCl 4 mg Q4HP PRN IV 03/18/24 21:00 Docusate Sodium 100 mg BIDPRN PRN PO 03/18/24 21:00 Nitroglycerin 0.4 mg Q5MINP PRN SL 03/18/24 21:45 Morphine Sulfate 2 mg Q30M PRN IV 03/18/24 21:45 Examination General Appearance: Alert, Oriented X3, Cooperative, No acute distress on 2L of oxygen HEENT: Atraumatic, PERRLA, EOMI, Mucous membrane moist/pink Respiratory: Clear to auscultation, Normal air movement Cardiovascular: Regular rate, Normal S1, Normal S2, No murmurs, no chest wall tenderness Abdominal: NO distention, no tenderness, bowel sounds present, no scars noted Extremities: No clubbing, No cyanosis, No edema, Normal pulses, No tenderness/swelling Skin: No rashes, No breakdown, No significant lesion Neuro: Normal gait, Normal speech, Strength at 5/5 X4 ext, Normal tone, Sensation intact, Cranial nerves 3-12 NL, Reflexes 2+ Psych/Mental Status: Mental status NL, Mood NL laboratory and microbiology Laboratory Tests 03/19/24 05:17 Test 03/19/24 05:17 Range/Units Serum Glucose 88 74-106 mg/dL Problem List/Assessment/Plan Problem List/Assessment/Plan Assessment Community acquired pneumonia likely Gram-negative/Gram-positive Acute respiratory failure secondary to pneumonia Transaminitis Bilateral mediastinal lymphadenopathy rule out sarcoidosis versus infectious causes such as TB Hypertension Hyperlipidemia Asthma Diabetes melitus Hyponatremia Anemia Plan Continue antibiotics (azithromycin and ceftriaxone) Continue oxygen use by nasal cannula as needed BURAK, and dsDNA to rule out sarcoidosis ( out patient) Furosemide 20 mg daily Echo Ipratropium/albuterol Diet: Regular DVT prophylaxis: Lovenox monitor and replace electrolytes Code status: Full code Goal of care discussed for more than 35 minutes Case and plan discussed with Dr. Cole Plan discussed with: Patient Date of Service: Mar 19, 2024 Billing Provider: MELISSA COLE MD Common Visit Codes: [id number] INP/OBS CARE(HIGH) Secondary Visit Codes: [id number] CARE PLAN 30 MINUTES AFUA CONDE RESIDENT Mar 19, 2024 18:02 MELISSA COLE MD Mar 19, 2024 18:32
[2024-03-19] MEDS: ENOXAPARIN SOD 40 MG/0.4 ML SYRINGE SC ONE (18:26)
[2024-03-19] MEDS ORDERED: LISI-285 PO (19:02)
[2024-03-19] MEDS ORDERED: ATOR20TA50 (19:02)
[2024-03-19] MEDS ORDERED: ASPI-325 PO (19:02)
[2024-03-19] MEDS: IPRATROPIUM BROM 0.5 MG/2.5ML INH SOL NEB SCH (19:39)
[2024-03-19] MEDS: ALBUTEROL SULF 2.5 MG/0.5ML(0.5%) NEB SOLN NEB PRN (19:39)
--- NOTE | 2024-03-19 20:49 | DVHINCON2 ---
Date of service: Mar 19, 2024 Referring Physician Celia Allen MD Reason for Consultation Pneumonia, acute respiratory distress. History of Present Illness A 78-year-old woman with past medical history of asthma who presented to ED on 03/18/24 with complaint of shortness of breath. Patient reported progressively worsening symptoms with anxiety, SOB at rest, and increased work of breathing that prompted this visit. Workup in ED showed WBC 6.0, platelets 135, sodium 131, potassium 3.5, BUN 8, creatinine 0.89, GFR 66, glucose 108, D-dimer 0.98, AST 60, ALT 49, BNP 228.86, troponin 10. CT Angiography revealed patchy bilateral pneumonia, small pericardial effusion, mediastinal and bilateral hilar lymphadenopathy, enlarged and heterogeneous thyroid with multiple cysts and nodules; no pulmonary embolism. Patient was admitted for further care and pulmonary consultation is requested for evaluation and management due to the above findings. Review of Systems: 14-point review of systems negative unless otherwise noted above. Past Medical History: Asthma Past Surgical History: None Medications: Reviewed. Allergies: No known drug allergies. Family History: No family history of premature CAD. No family history of lung disorders. Social History: Nonsmoker. No alcohol or illicit drug use. Family History: Patient reports no known family medical history. Allergies: Coded Allergies: NO KNOWN ALLERGIES (Unverified , 03/15/24) Home Meds Active Scripts Albuterol Sulfate (Albuterol Sulfate Hfa) 108 Mcg/Act Aer, 108 MCG IN Q6HP PRN for 30 Days, #1 AER 0 Refills Prov:POLY GARCIA LEAD ASSISTANT MANAGER 03/15/24 Acetaminophen (Acetaminophen) 500 Mg Tab, 500 MG PO Q6HP PRN for 10 Days, #40 TAB 0 Refills Prov:POLY GARCIA LEAD ASSISTANT MANAGER 03/15/24 Reported Medications Lisinopril & Hydrochlorothiazi (Lisinopril/Hydrochlorothi) 1 Tab Tab, 1 TAB PO DAILY, #30 TAB 5 Refills 03/19/24 Aspirin (Aspirin Low Dose) 81 Mg Tab, 1 TAB PO DAILY 03/19/24 Atorvastatin Calcium (ATORVASTATIN CALCIUM) 20 Mg Tab, 1 DAILY 03/19/24 Current Medications Current Medications Medications (Trade) Dose Ordered Sig/Shaista Route PRN Reason Start Time Stop Time Status Last Admin Azithromycin 250 ml @ 125 mls/hr DAILY IV 03/19/24 10:00 Hold Ibuprofen (Motrin Tablet) 600 mg Q6HP PRN PO PAIN SCALE 1-3 OR TEMP>100.4 03/18/24 21:00 03/19/24 16:41 Furosemide (Lasix Injection) 20 mg DAILY IV 03/19/24 10:00 03/19/24 11:55 Sodium Chloride (Saline Lock Ns) 10 ml Q8HR IV 03/18/24 22:00 03/19/24 13:58 Acetaminophen/ Hydrocodone Bitart ([place] 5/325MG Tab) 1 tab Q4HP PRN PO MODERATE PAIN (4-6 PAIN SCALE) 03/18/24 21:00 Ondansetron HCl (Zofran) 4 mg Q4HP PRN IV NAUSEA / VOMITING 03/18/24 21:00 Docusate Sodium (Colace Capsule) 100 mg BIDPRN PRN PO FOR CONSTIPATION 03/18/24 21:00 Nitroglycerin (Ntrostat Sublingual) 0.4 mg Q5MINP PRN SL FOR CHEST PAIN 03/18/24 21:45 Morphine Sulfate 2 mg Q30M PRN IV FOR CHEST PAIN 03/18/24 21:45 Enoxaparin Sodium (Lovenox) 40 mg DAILY SC 03/20/24 10:00 Ipratropium [place] (Atrovent Medneb) 0.5 mg Q4HR NEB 03/19/24 18:00 03/19/24 19:42 DC 03/19/24 19:39 Albuterol (Ventolin Medneb) 2.5 mg Q4HPRN PRN NEB SHORTNESS OF BREATH 03/19/24 18:00 03/19/24 19:42 DC 03/19/24 19:39 Albuterol (Ventolin Medneb) 2.5 mg Q6HWA NEB 03/20/24 06:00 Ipratropium [place] (Atrovent Medneb) 0.5 mg Q6HWA NEB 03/20/24 06:00 Vital Signs Vital Signs Date Time Temp Pulse Resp B/P (MAP) Pulse Ox O2 Delivery O2 Flow Rate FiO2 03/19/24 20:00 Room Air* 0 21 03/19/24 19:23 68 18 100 03/19/24 18:37 98.4 112/62 (79) 98.4 Physical Exam Gen.: Patient lying in bed in no apparent distress. On supplemental oxygen. Head: Normocephalic, atraumatic. Eyes: EOMI/PERRLA. Ears: Normal hearing. Normal anatomy. Neck/trachea: Trachea midline, supple. Nose: Normal external anatomy. Mouth: Moist mucous membranes. Chest: Decreased air entry bilaterally. No wheezing or rhonchi. Cardiovascular: Positive S1, positive S2. Regular rate and rhythm. Abdomen: Positive bowel sounds in all 4 quadrants. Soft, non-tender, non- distended. : Deferred. Rectal: Deferred. Skin: Warm, dry. Intact. Extremities: 2+ radial pulses bilaterally. No lower extremity edema. Neuro: Awake, alert, oriented x3. No gross motor or sensory deficits. Cranial nerves II through XII intact. Gait not assessed. Labs/Diagnostic Data Labs Test 03/19/24 05:17 03/19/24 02:05 03/18/24 13:56 03/18/24 10:00 Range/Units White Blood Count 5.1 4.4-10.8 10^3/uL Red Blood Count 3.82 L 4.0-5.20 10^6/uL Hemoglobin 12.0 #L 12.2-16.2 g/dL Hematocrit 35.3 #L 36.0-46.0 % Mean Corpuscular Volume 92.4 80.0-100.0 fL Mean Corpuscular Hemoglobin 31.5 28.0-32.0 pg Mean Corpuscular Hemoglobin Concent 34.1 32.0-36.0 g/dL Red Cell Distribution Width 14.6 H 11.8-14.3 % Platelet Count 123 L 140-450 10^3/uL Mean Platelet Volume 8.6 6.9-10.8 fL Neutrophils (%) (Auto) 58.4 37.0-80.0 % Lymphocytes (%) (Auto) 24.9 10.0-50.0 % Monocytes (%) (Auto) 13.3 H 0.0-12.0 % Eosinophils (%) (Auto) 2.9 0.0-7.0 % Basophils (%) (Auto) 0.5 0.0-2.0 % Neutrophils # (Auto) 3.0 1.6-8.6 10 ^3/uL Lymphocytes # (Auto) 1.3 0.4-5.4 10 ^3/uL Monocytes # (Auto) 0.7 0-1.3 10 ^3/uL Eosinophils # (Auto) 0.1 0-0.8 10 ^3/uL Basophils # (Auto) 0 0-0.2 10 ^3/uL Nucleated Red Blood Cells 0.1 % Sodium Level 135 L 136-145 mmol/L Potassium Level 3.5 3.5-5.1 mmol/L Chloride Level 103 98-107 mmol/L Carbon Dioxide Level 27 20-31 mmol/L Anion Gap 5 5-15 Blood Urea Nitrogen 10 9-23 mg/dL Creatinine 0.96 0.550-1.02 mg/dL Glomerular Filtration Rate Calc 61 >90 mL/min BUN/Creatinine Ratio 10.4 10.0-20.0 Serum Glucose 88 74-106 mg/dL Calcium Level 9.5 8.7-10.4 mg/dL Total Bilirubin 0.7 0.2-1.0 mg/dL Aspartate Amino Transferase (AST) 39 13-40 U/L Alanine Aminotransferase (ALT) 38 7-40 U/L Alkaline Phosphatase 176 H 46-116 U/L Total Protein 6.8 5.7-8.2 g/dL Albumin 3.2 3.2-4.8 g/dL Influenza Type A Antigen Negative Negative Influenza Type B Antigen Negative Negative SARS-CoV-2 Antigen (Rapid) Negative NEGATIVE Troponin I High Sensitivity 10 </=34 ng/L Prothrombin Time 10.8 9.3-11.8 sec Prothrombin Time INR 1.02 0.9-1.15 Activated Partial Thromboplast Time 28.3 24.5-34.5 SEC D-Dimer, Quantitative 0.98 H 0.0-0.49 mg/L FEU B-Type Natriuretic Peptide 228.86 0-100 pg/mL Assessment Impression: Acute respiratory distress Pneumonia, likely gram negative Elevated D-dimer, PE ruled out Abnormal LFTs Mediastinal lymphadenopathy Small pericardial effusion Plan: Supplemental oxygen 2 LPM NC Titrate to keep O2 sats above 92%. Taper O2 as tolerated. CT Angiography revealed patchy bilateral pneumonia, small pericardial effusion, mediastinal and bilateral hilar lymphadenopathy, enlarged and heterogeneous thyroid with multiple cysts and nodules; no pulmonary embolism. Continue bronchodilators. Diurese w/ Lasix as tolerated Monitor renal function. Monitor electrolytes. Supplement as necessary. Monitor ins and outs. DVT prophylaxis - Lovenox. Prognosis: Poor given patient's multiple co-morbidities. Rest of plan per hospitalist and other consultants. Thank you, Dr. Allen, for allowing me to participate in this patient's care. Further recommendations will depend on the patient's clinical course. Please do not hesitate to contact me if you have any questions or concerns. This medical document was created using an electronic medical record system with [employer] dictation system. Although these documentations are being carefully reviewed, there may still be some phonetic and typographical changes. The errors are purely typographical, due to imperfection on the software program, and do not reflect any compromise in the patient's medical care. Plan discussed with: Patient, Other (RN/MD Allen) DALTON LIANG MD Mar 19, 2024 20:49
[2024-03-20] VITALS (13 sets, daily range): BP systolic 105–126; BP diastolic 55–71; PULSE 58–80; RESP 16–20; TEMP 97.7–98.3; O2SAT 97–100
[2024-03-20] MEDS: ALBUTEROL SULF 2.5 MG/0.5ML(0.5%) NEB SOLN NEB SCH (06:54)
[2024-03-20] MEDS: IPRATROPIUM BROM 0.5 MG/2.5ML INH SOL NEB SCH (06:54)
[2024-03-20] MEDS: ENOXAPARIN SOD 40 MG/0.4 ML SYRINGE SC SCH (10:00)
--- NOTE | 2024-03-20 20:42 | DVHPN2 ---
Subjective in bed still on 2L NC Changes from previous H/P or p: No Changes Eyes: No Pain, No Vision change, No Conjunctivae inflammation, No Eyelid inflammation, No Other, No Redness ENT: No Ear pain, No Ear discharge, No Nose pain, No Nose discharge, No Nose congestion, No Mouth pain, No Mouth swelling, No Throat pain, No Throat swelling, No Other Cardiovascular: No Chest Pain, No Palpitations, No Orthopnea, No Paroxysmal Noc. Dyspnea, No Edema, No Lt Headedness, No Other Respiratory: No Cough, No Dry; Shortness of breath, SOB with excertion; No Wheezing, No Hemoptysis, No Pleuritic Pain, No Sputum; Other (SOB at rest) Gastrointestinal: No Nausea, No Vomiting, No Abdominal Pain, No Diarrhea, No Constipation, No Melena, No Hematochezia, No Other Genitourinary: No Dysuria, No Frequency, No Incontinence, No Hematuria, No Retention, No Other Musculoskeletal: No other, No neck pain, No shoulder pain, No arm pain, No back pain, No hand pain, No leg pain, No foot pain Skin: No Rash, No Lesions, No Jaundice, No Bruising, No Other Objective Vitals Vital Signs Date Time Temp Pulse Resp B/P (MAP) Pulse Ox O2 Delivery O2 Flow Rate FiO2 03/20/24 19:30 80 18 98 Nasal Cannula* 2 28 03/20/24 17:00 98.2 126/69 (88) 98.2 Intake/Output Intake and Output 03/20/24 05:00 Intake Total 380 ml Balance 380 ml Intake Oral 380 ml # Voids 2 Medications Current Medications Medications Dose Ordered Sig/Shaista Route Start Time Stop Time Status Last Admin Dose Admin Albuterol 90 mcg TID PRN IN 03/18/24 10:45 Cancel Azithromycin 250 ml @ 125 mls/hr DAILY IV 03/19/24 10:00 Hold Ibuprofen 600 mg Q6HP PRN PO 03/18/24 21:00 03/20/24 10:31 600 MG Furosemide 20 mg DAILY IV 03/19/24 10:00 03/20/24 10:00 20 MG Sodium Chloride 10 ml Q8HR IV 03/18/24 22:00 03/20/24 14:00 10 ML Acetaminophen/ Hydrocodone Bitart 1 tab Q4HP PRN PO 03/18/24 21:00 Ondansetron HCl 4 mg Q4HP PRN IV 03/18/24 21:00 Docusate Sodium 100 mg BIDPRN PRN PO 03/18/24 21:00 Nitroglycerin 0.4 mg Q5MINP PRN SL 03/18/24 21:45 Morphine Sulfate 2 mg Q30M PRN IV 03/18/24 21:45 Enoxaparin Sodium 40 mg DAILY SC 03/20/24 10:00 03/20/24 10:00 40 MG Albuterol 2.5 mg Q6HWA [facility] 03/20/24 06:00 03/20/24 17:58 2.5 MG Ipratropium [place] 0.5 mg Q6HWA [facility] 03/20/24 06:00 03/20/24 17:58 0.5 MG Laboratory Results Laboratory Tests 03/19/24 05:17 Assessment/Plan Assessment/Plan Community acquired pneumonia likely Gram-negative/Gram-positive Acute respiratory failure secondary to pneumonia Transaminitis Bilateral mediastinal lymphadenopathy rule out sarcoidosis versus infectious causes such as TB Hypertension Hyperlipidemia Asthma Diabetes melitus Hyponatremia Anemia Plan Continue antibiotics (azithromycin and ceftriaxone) Continue oxygen use by nasal cannula as needed BURAK, and dsDNA to rule out sarcoidosis ( out patient) Furosemide 20 mg daily Echo Ipratropium/albuterol Diet: Regular DVT prophylaxis: Lovenox monitor and replace electrolytes Code status: Full code Goal of care discussed for more than 35 minutes Plan discussed with: Patient Date of Service: Mar 20, 2024 Billing Provider: JAJA VERA MD Common Visit Codes: [id number] INP/OBS CARE(HIGH) JAJA VERA MD Mar 20, 2024 20:42
--- NOTE | 2024-03-20 22:33 | DVHPN2 ---
Progress Note - Dictate Date Seen: Mar 20, 2024 Has the PT tested + for MRSA If YES, has PT been informed?: No Medical Necessity Reason Pt with a Central, PICC or Fol: No Subjective Patient seen and examined at bedside. Remains on supplemental oxygen Overnight events reviewed. vital signs Vital Sign Date Time Temp Pulse Resp B/P (MAP) Pulse Ox O2 Delivery O2 Flow Rate FiO2 03/20/24 21:00 98.2 73 16 105/63 (77) 99 98.2 03/20/24 19:30 Nasal Cannula* 2 28 Total Intake and Output 03/19/24 03/19/24 03/20/24 15:00 23:00 07:00 Intake Total 380 ml Balance 380 ml medications Current Medications Medications Dose Ordered Sig/Shaista Route Start Time Stop Time Status Last Admin Dose Admin Albuterol 90 mcg TID PRN IN 03/18/24 10:45 Cancel Azithromycin 250 ml @ 125 mls/hr DAILY IV 03/19/24 10:00 Hold Ibuprofen 600 mg Q6HP PRN PO 03/18/24 21:00 03/20/24 10:31 600 MG Furosemide 20 mg DAILY IV 03/19/24 10:00 03/20/24 10:00 20 MG Sodium Chloride 10 ml Q8HR IV 03/18/24 22:00 03/20/24 14:00 10 ML Acetaminophen/ Hydrocodone Bitart 1 tab Q4HP PRN PO 03/18/24 21:00 Ondansetron HCl 4 mg Q4HP PRN IV 03/18/24 21:00 Docusate Sodium 100 mg BIDPRN PRN PO 03/18/24 21:00 Nitroglycerin 0.4 mg Q5MINP PRN SL 03/18/24 21:45 Morphine Sulfate 2 mg Q30M PRN IV 03/18/24 21:45 Enoxaparin Sodium 40 mg DAILY SC 03/20/24 10:00 03/20/24 10:00 40 MG Albuterol 2.5 mg Q6HWA NEB 03/20/24 06:00 03/20/24 17:58 2.5 MG Ipratropium [place] 0.5 mg Q6HWA NEB 03/20/24 06:00 03/20/24 17:58 0.5 MG objective Gen.: Patient lying in bed in no apparent distress. On supplemental oxygen. Head: Normocephalic, atraumatic. Eyes: EOMI/PERRLA. Ears: Normal hearing. Normal anatomy. Neck/trachea: Trachea midline, supple. Nose: Normal external anatomy. Mouth: Moist mucous membranes. Chest: Decreased air entry bilaterally. No wheezing or rhonchi. Cardiovascular: Positive S1, positive S2. Regular rate and rhythm. Abdomen: Positive bowel sounds in all 4 quadrants. Soft, non-tender, non- distended. : Deferred. Rectal: Deferred. Skin: Warm, dry. Intact. Extremities: 2+ radial pulses bilaterally. No lower extremity edema. Neuro: Awake, alert, oriented x3. No gross motor or sensory deficits. Cranial nerves II through XII intact. Gait not assessed. laboratory and microbiology Laboratory Tests 03/19/24 05:17 Test 03/19/24 05:17 Range/Units Serum Glucose 88 74-106 mg/dL Assessment/Plan Impression: Acute respiratory distress Pneumonia, likely gram negative Elevated D-dimer, PE ruled out Abnormal LFTs Mediastinal lymphadenopathy Small pericardial effusion Events: Remains on supplemental oxygen, 2 LPM NC Taper O2 as tolerated Continue bronchodilators Continue antibiotics Incentive spirometry Labs and imaging reviewed. Rest of plan as noted below. Plan: Supplemental oxygen Titrate to keep O2 sats above 92%. Taper O2 as tolerated. CT Angiography revealed patchy bilateral pneumonia, small pericardial effusion, mediastinal and bilateral hilar lymphadenopathy, enlarged and heterogeneous thyroid with multiple cysts and nodules; no pulmonary embolism. Continue bronchodilators. Continue antibiotics Diurese w/ Lasix as tolerated Monitor renal function. Monitor electrolytes. Supplement as necessary. Monitor ins and outs. DVT prophylaxis - Lovenox. Prognosis: Guarded given patient's multiple co-morbidities. Rest of plan per hospitalist and other consultants. Thank you, Dr. Allen, for allowing me to participate in this patient's care. Further recommendations will depend on the patient's clinical course. Please do not hesitate to contact me if you have any questions or concerns. This medical document was created using an electronic medical record system with [employer] system. Although these documentations are being carefully reviewed, there may still be some phonetic and typographical changes. The errors are purely typographical, due to imperfection on the software program, and do not reflect any compromise in the patient's medical care. Plan discussed with: Patient, Other (KASANDRA [place]) DALTON LIANG MD Mar 20, 2024 22:33
[2024-03-21] VITALS (16 sets, daily range): BP systolic 90–133; BP diastolic 50–67; PULSE 57–85; RESP 12–18; TEMP 97.8–98.5; O2SAT 98–100
[2024-03-21] MEDS: MELATONIN 5 MG TAB PO PRN (01:33)
[2024-03-21] MEDS: cefTRIAXone 1GM/50ML D5W 50 ML IV ONE (09:27)
[2024-03-21 11:14] LABS: Basophils # (auto) 0 10 ^3/uL (0-0.2); Basophils % (auto) 0.8 % (0.0-2.0); Eosinophils # (auto) 0.1 10 ^3/uL (0-0.8); Eosinophils % (auto) 3.1 % (0.0-7.0); Hemoglobin 13.1 g/dL (12.2-16.2); Lymphocytes # (auto) 0.7 10 ^3/uL (0.4-5.4); Lymphocytes % (auto) 16.1 % (10.0-50.0); Mean Corpuscular Hemoglobin 31.4 pg (28.0-32.0); Mean Corpuscular Hgb Conc. 34.4 g/dL (32.0-36.0); Mean Corpuscular Volume 91.2 fL (80.0-100.0); Monocytes # (auto) 0.6 10 ^3/uL (0-1.3); Neutrophils # (auto) 2.9 10 ^3/uL (1.6-8.6); Nucleated Red Blood Cells % 0.1 %; Platelet Count (auto) 174 10^3/uL (140-450); Red Blood Cells 4.17 10^6/uL (4.0-5.20); Red Cell Distribution Width 14.3 % (11.8-14.3); White Blood Cell 4.4 10^3/uL (4.4-10.8)
--- NOTE | 2024-03-21 11:20 | ECG ---
[facility] Test Date: 2024-03-21 Test Time: 09:39:32 Pat Name: MATTHEW PRADO Department: Respiratoy Room: 0215T A Gender: F Incident Response Analyst: [id number] : 1945 Requested By: AFUA CONDE Order Number: [id number] Reading MD: Yanelis Franco Measurements Intervals [place] Rate: 68 P: 41 [place]: 153 QRS: 49 QRSD: 99 T: 45 QT: 420 QTc: 447 Interpretive Statements Sinus rhythm Abnrm T, consider ischemia, anterolateral lds Electronically Signed On 03-22-2024 10:34:41 PST by Yanelis Franco Please click the below link to view image of tracing.
--- NOTE | 2024-03-21 11:20 | ECG ---
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
[2024-03-21 11:32] LABS: Alanine Aminotransferase 37 U/L (7-40); Albumin 3.7 g/dL (3.2-4.8); Anion Gap 6 (5-15); Aspartate Aminotransferase 38 U/L (13-40); BUN/Creatinine Ratio 9.3 (10.0-20.0); Calcium 10.1 mg/dL (8.7-10.4); Carbon Dioxide 28 mmol/L (20-31); Glucose 106 mg/dL (74-106)
[2024-03-21 11:33] LABS: Bilirubin, Total 0.7 mg/dL (0.2-1.0); Total Protein 7.8 g/dL (5.7-8.2)
[2024-03-21 11:42] LABS: Alkaline Phosphatase 179 U/L (46-116); Blood Urea Nitrogen 8 mg/dL (9-23); Chloride 97 mmol/L (98-107); Potassium 2.8 mmol/L (3.5-5.1); Sodium 131 mmol/L (136-145)
[2024-03-21] MEDS: POTASSIUM EFFERVESENT TAB 25 MEQ PO ONE (14:46)
--- NOTE | 2024-03-21 15:52 | DVHPNRES ---
Progress Note Date Seen: Mar 21, 2024 Resident Creating Document: FAUA CONDE RESIDENT Has the PT tested + for MRSA If YES, has PT been informed?: No Medical Necessity Reason Pt with a Central, PICC or Fol: No Medical Necessity Reason pneumonia gram-/gram+ Subjective Review of Systems This is a 78-year-old female with past medical history of HTN, DM, HLD, asthma and arthritis presented to [facility] ED with complaint of shortness of breaths. Patient reported that her symptoms progressively became worse with shortness of breaths at rest. Thus prompting the patient to come to the ED. of note the patient was here on March 15 with similar presentation of shortness of breaths where she had tested positive for COVID. Denied fever chills nausea shortness of breath at home however she mentioned that when she presented to the ED she was found to have a little bit of fever. In the ED, initial vitals normal. laboratory data showed WBC 6.0, platelets 135, sodium 131, potassium 3.5, BUN 8, creatinine 0.89, GFR 66, glucose 108, D-dimer 0.98, AST 60, ALT 49, BNP 228.86, troponin 10. CT Angiography revealed patchy bilateral pneumonia, small pericardial effusion, mediastinal bilateral hilar lymphadenopathy, enlarged and heterogeneous thyroid with multiple cysts and nodules; no pulmonary embolism. Patient was started on IV azithromycin and Ceftriaxone. PN:03/21/2024 Patient seen and today. Complain of shortness of breaths and on 2 L of oxygen via nasal cannula. Patient had QTc on azithromycin. Therefore we discontinued this to azithromycin and continue with the ceftriaxone. Blood work showed K: 2.9, Na: 131, and M.7 Echo showed EF: 65% Objective vital signs Vital Sign Date Time Temp Pulse Resp B/P (MAP) Pulse Ox O2 Delivery O2 Flow Rate FiO2 03/21/24 11:24 65 14 100 03/21/24 11:18 Nasal Cannula* 2 28 03/21/24 10:53 98.3 03/21/24 09:26 107/50 Total Intake and Output 03/20/24 03/20/24 03/21/24 15:00 23:00 07:00 Intake Total 600 ml 620 ml Balance 600 ml 620 ml medications Current Medications Medications Dose Ordered Sig/Shaista Route Start Time Stop Time Status Last Admin Dose Admin Albuterol 90 mcg TID PRN IN 03/18/24 10:45 Cancel Azithromycin 250 ml @ 125 mls/hr DAILY IV 03/19/24 10:00 Hold Ibuprofen 600 mg Q6HP PRN PO 03/18/24 21:00 03/21/24 09:53 600 MG Furosemide 20 mg DAILY IV 03/19/24 10:00 03/21/24 09:26 20 MG Sodium Chloride 10 ml Q8HR IV 03/18/24 22:00 03/21/24 14:22 10 ML Acetaminophen/ Hydrocodone Bitart 1 tab Q4HP PRN PO 03/18/24 21:00 Ondansetron HCl 4 mg Q4HP PRN IV 03/18/24 21:00 Docusate Sodium 100 mg BIDPRN PRN PO 03/18/24 21:00 Nitroglycerin 0.4 mg Q5MINP PRN SL 03/18/24 21:45 Morphine Sulfate 2 mg Q30M PRN IV 03/18/24 21:45 Enoxaparin Sodium 40 mg DAILY SC 03/20/24 10:00 03/21/24 09:26 40 MG Albuterol 2.5 mg Q6HWA NEB 03/20/24 06:00 03/21/24 11:19 2.5 MG Ipratropium [place] 0.5 mg Q6HWA NEB 03/20/24 06:00 03/21/24 11:18 0.5 MG Melatonin 5 mg HS PRN PO 03/21/24 01:30 03/21/24 01:33 5 MG Ceftriaxone Sodium 50 ml @ 100 mls/hr DAILY@09 IV 03/22/24 09:00 Examination General Appearance: Alert, Oriented X3, Cooperative, No acute distress on 2L of oxygen HEENT: Atraumatic, PERRLA, EOMI, Mucous membrane moist/pink Respiratory: -->Neck/trachea: Trachea midline, supple. -->Crackles L>R, on 2 Lof oxygen Cardiovascular: Regular rate, Normal S1, Normal S2, No murmurs, no chest wall tenderness Abdominal: No distention, no tenderness, bowel sounds present, no scars noted Extremities: No clubbing, No cyanosis, No edema, Normal pulses, No tenderness/swelling Skin: No rashes, No breakdown, No significant lesion Neuro: Normal gait, Normal speech, Strength at 5/5 X4 ext, Normal tone, Sensation intact, Cranial nerves 3-12 NL, Reflexes 2+ Psych/Mental Status: Mental status NL, Mood NL laboratory and microbiology Laboratory Tests 03/21/24 11:03 Test 03/21/24 11:03 Range/Units Serum Glucose 106 74-106 mg/dL Problem List/Assessment/Plan Problem List/Assessment/Plan Assessment Community acquired pneumonia likely Gram-negative/Gram-positive Acute respiratory failure secondary to pneumonia Transaminitis Bilateral mediastinal lymphadenopathy, likely reactive Hypertension Hyperlipidemia Asthma Diabetes melitus Hyponatremia hypokalemia Anemia QTc prolongation whiles on Azithromycin, D/C'ed Azithromycin Plan Continue antibiotics (Ceftriaxone) Continue oxygen use by nasal cannula as needed Repeat CT in 8-12 week to reassess for the lymph node resolution Furosemide 20 mg daily Ipratropium/albuterol Diet: Regular DVT prophylaxis: Lovenox stop, patient is ambulating Monitor and replace electrolytes Code status: Full code Goal of care discussed for more than 35 minutes Case and plan discussed with Plan discussed with: Patient, Other (Sister) My Orders My Orders Orders - AFUA CONDE Procedure Category Date Status Time Ceftriaxone 1gm/50ml PHA 03/22/24 In Process D5w (Rocephin) 09:00 Date of Service: Mar 21, 2024 Billing Provider: JAJA VERA MD Common Visit Codes: [id number] INP/OBS CARE(HIGH) AFUA CONDE Mar 21, 2024 15:52 JAJA VERA MD Mar 21, 2024 20:00
[2024-03-21] MEDS: MAGNESIUM SULFATE 1GM/100ML 100 ML IV ONE (16:24)
--- NOTE | 2024-03-21 21:08 | DVHPN2 ---
Progress Note - Dictate Date Seen: Mar 21, 2024 Has the PT tested + for MRSA If YES, has PT been informed?: No Medical Necessity Reason Pt with a Central, PICC or Fol: No Subjective Patient seen and examined at bedside. Remains on supplemental oxygen Overnight events reviewed. vital signs Vital Sign Date Time Temp Pulse Resp B/P (MAP) Pulse Ox O2 Delivery O2 Flow Rate FiO2 03/21/24 20:03 98.3 63 16 94/57 98 2.0 28 98.3 03/21/24 18:28 Nasal Cannula Total Intake and Output 03/20/24 03/20/24 03/21/24 15:00 23:00 07:00 Intake Total 600 ml 620 ml Balance 600 ml 620 ml medications Current Medications Medications Dose Ordered Sig/Shaista Route Start Time Stop Time Status Last Admin Dose Admin Albuterol 90 mcg TID PRN IN 03/18/24 10:45 Cancel Azithromycin 250 ml @ 125 mls/hr DAILY IV 03/19/24 10:00 Hold Ibuprofen 600 mg Q6HP PRN PO 03/18/24 21:00 03/21/24 09:53 600 MG Furosemide 20 mg DAILY IV 03/19/24 10:00 03/21/24 09:26 20 MG Sodium Chloride 10 ml Q8HR IV 03/18/24 22:00 03/21/24 20:58 10 ML Acetaminophen/ Hydrocodone Bitart 1 tab Q4HP PRN PO 03/18/24 21:00 Ondansetron HCl 4 mg Q4HP PRN IV 03/18/24 21:00 Docusate Sodium 100 mg BIDPRN PRN PO 03/18/24 21:00 Nitroglycerin 0.4 mg Q5MINP PRN SL 03/18/24 21:45 Morphine Sulfate 2 mg Q30M PRN IV 03/18/24 21:45 Enoxaparin Sodium 40 mg DAILY SC 03/20/24 10:00 03/21/24 09:26 40 MG Albuterol 2.5 mg Q6HWA NEB 03/20/24 06:00 03/21/24 18:27 2.5 MG Ipratropium [place] 0.5 mg Q6HWA NEB 03/20/24 06:00 03/21/24 18:27 0.5 MG Melatonin 5 mg HS PRN PO 03/21/24 01:30 03/21/24 20:58 5 MG Ceftriaxone Sodium 50 ml @ 100 mls/hr DAILY@09 IV 03/22/24 09:00 objective Gen.: Patient lying in bed in no apparent distress. On supplemental oxygen. Head: Normocephalic, atraumatic. Eyes: EOMI/PERRLA. Ears: Normal hearing. Normal anatomy. Neck/trachea: Trachea midline, supple. Nose: Normal external anatomy. Mouth: Moist mucous membranes. Chest: Decreased air entry bilaterally. No wheezing or rhonchi. Cardiovascular: Positive S1, positive S2. Regular rate and rhythm. Abdomen: Positive bowel sounds in all 4 quadrants. Soft, non-tender, non- distended. : Deferred. Rectal: Deferred. Skin: Warm, dry. Intact. Extremities: 2+ radial pulses bilaterally. No lower extremity edema. Neuro: Awake, alert, oriented x3. No gross motor or sensory deficits. Cranial nerves II through XII intact. Gait not assessed. laboratory and microbiology Laboratory Tests 03/21/24 16:13 03/21/24 11:03 Test 03/21/24 11:03 Range/Units Serum Glucose 106 74-106 mg/dL Assessment/Plan Impression: Acute respiratory distress Pneumonia, likely gram negative Elevated D-dimer, PE ruled out Abnormal LFTs Mediastinal lymphadenopathy Small pericardial effusion Events: Remains on supplemental oxygen, 2 LPM NC Taper O2 as tolerated Continue bronchodilators Continue antibiotics Incentive spirometry Physical therapy. Monitor renal function Monitor electrolytes. Supplement as necessary. Potassium supplementation Check magnesium Disposition per hospitalist. Labs and imaging reviewed. Rest of plan as noted below. Plan: Supplemental oxygen Titrate to keep O2 sats above 92%. Taper O2 as tolerated. CT Angiography revealed patchy bilateral pneumonia, small pericardial effusion, mediastinal and bilateral hilar lymphadenopathy, enlarged and heterogeneous thyroid with multiple cysts and nodules; no pulmonary embolism. Continue bronchodilators. Continue antibiotics Diurese w/ Lasix as tolerated Monitor renal function. Monitor electrolytes. Supplement as necessary. Monitor ins and outs. DVT prophylaxis - Lovenox. Prognosis: Guarded given patient's multiple co-morbidities. Rest of plan per hospitalist and other consultants. Thank you, Dr. Allen, for allowing me to participate in this patient's care. Further recommendations will depend on the patient's clinical course. Please do not hesitate to contact me if you have any questions or concerns. This medical document was created using an electronic medical record system with [employer] computerized dictation system. Although these documentations are being carefully reviewed, there may still be some phonetic and typographical changes. The errors are purely typographical, due to imperfection on the software program, and do not reflect any compromise in the patient's medical care. Plan discussed with: Patient, Other (KASANDRA [place]) DALTON LIANG MD Mar 21, 2024 21:08
[2024-03-22] VITALS (10 sets, daily range): BP systolic 82–139; BP diastolic 50–62; PULSE 59–76; RESP 14–18; TEMP 97.8–98.3; O2SAT 97–100
[2024-03-22] MEDS: cefTRIAXone 1GM/50ML D5W 50 ML IV SCH (08:48)
[2024-03-22] MEDS: SODIUM CHLORIDE 0.9% 1,000 ML IV ONE (10:00)
[2024-03-22 10:46] LABS: Anion Gap 3 (5-15); Potassium 3.9 mmol/L (3.5-5.1)
[2024-03-22 10:47] LABS: Calcium 9.7 mg/dL (8.7-10.4)
[2024-03-22 10:52] LABS: BUN/Creatinine Ratio 13.8 (10.0-20.0); Blood Urea Nitrogen 11 mg/dL (9-23)
[2024-03-22 10:53] LABS: Carbon Dioxide 31 mmol/L (20-31); Chloride 97 mmol/L (98-107); Glucose 110 mg/dL (74-106); Sodium 131 mmol/L (136-145)
[2024-03-22] MEDS ORDERED: LEVO750T40 PO (13:01)
[2024-03-22] MEDS ORDERED: MELA5TAB16 PO (15:11)
--- NOTE | 2024-03-22 15:19 | DVHDSRES ---
Discharge Summary Date of Admission Resident Creating Document: AFUA CONDE RESIDENT Mar 18, 2024 at 21:34 Date of Discharge: Mar 22, 2024 Admitting Diagnosis Pneumonia, unspecified organism Labs/Diagnostic Data: Signed PATIENT: MATTHEW PRADOT: [id number] UNIT: [id number] : 1945 LOC: [facility] ROOM / BED: [address] [place] [address] AGE / SEX: 78 / F ADM STATUS: ADM IN SERVICE 04 ORDERING PHYSICIAN: RIKY DYER DNP PROCEDURE(s): THYDU - THYROID REASON: Thyroid nodules ORDER NUMBER(s): [id number], ACCESSION NUMBER(s): [id number] ULTRASOUND SOFT TISSUE HEAD AND NECK CLINICAL INDICATION: Thyroid nodules TECHNIQUE: Multiple real time sonographic images of the thyroid were obtained. Comparison: None FINDINGS: The right thyroid gland measures 4.4 x 1.9 x 2.1 cm. The left thyroid gland measures approximately 4.1 x 2.2 x 2.0 cm. The isthmus measures 0.4 cm. 1.6 x 1.4 x 1.9 cm hypoechoic peripherally calcified nodule in the midpole of the right thyroid lobe. 1.8 x 1.4 x 1.3 cm mixed solid and cystic nodule in the upper pole of the left thyroid lobe. 1.7 x 1.7 x 1.5 cm mixed solid and cystic nodule in the lower pole of the left thyroid lobe. IMPRESSION: Multiple complex thyroid nodules are seen, the most suspicious located in the right thyroid lobe measuring up to 1.9 cm with peripheral calcifications (TR 4 ). Recommend fine-needle aspiration of this nodule. Additionally, a follow-up thyroid ultrasound should be obtained in 12 months to follow-up the 2 left-sided nodules. [employer] TI-RADS Categories and Recommendations (2017): TR1: 0 points, Benign, No FNA TR2: 2 points, Not suspicious, No FNA TR3: 3 points, Mildly suspicious, FNA if > or = 2.5 cm, Follow if > or = 1.5 cm TR4: 4-6 points, Moderately Suspicious, FNA if > or = 1.5 cm, Follow if > or = 1.0 cm TR5: 7+ points, Highly Suspicious, FNA if > or = 1.0 cm, Follow if > or = 0.5 cm Follow-up ultrasound guidelines: TR5: yearly for 5 years, if no growth or change in TI-RADS level TR4: at 1, 2, 3 and 5 years, if no growth or change in TI-RADS level TR3: at 1, 3 and 5 years, if no growth or change in TI-RADS level If increased but below threshold for FNA, repeat in one year. Source: ACR Thyroid Imaging, Reporting and Data System (TI-RADS): White Paper of the ACR TI-RADS Committee. Baldo et al., J Am Tr Radiol 2017;14:587-595. ATED BY: TANA ALFARO MD DICTATED DATE/TIME: 03/18/24 749 PATIENT: MATTHEW PRADOCCT: [id number] UNIT: [id number] : 1945 LOC: ER ROOM / BED: / AGE / SEX: 78 / F ADM STATUS: REG ER SERVICE 1150 ORDERING PHYSICIAN: MIKHAIL CASTILLO MD PROCEDURE(s): CTACH - CT ANGIO CHEST CONTRAST REASON: r/o pe ORDER NUMBER(s): [id number], ACCESSION NUMBER(s): [id number] CTA Chest with intravenous contrast INDICATION: r/o pe COMPARISON: None TECHNIQUE: Multidetector spiral CTA of the chest was performed of the chest with intravenous contrast. PULMONARY ANGIOGRAPHY PROTOCOL was utilized using a bolus- tracking technique centered on the main pulmonary artery. Axial, coronal and sagittal multiplanar and MIP reformats were performed. CONTRAST: Type of contrast: Omni 350 Contrast injected: 100 ml Radiation dose : Chest: CTDI volume is 29 mGy. Dose-length product is 319 mGy*cm The dose indicators for CT are the volume computed Tomography (CT) dose Index (CTDIvol) and the dose Length product (DLP), and are measured in units of mGy and mGy-cm, respectively. These indicators are not patient dose, but values generated from the CT scanner acquisition factors. The report includes radiation exposure data for exposures received during this examination. Findings: Pulmonary artery: No pulmonary embolism Lower neck: Thyroid is enlarged and heterogeneous with cysts and nodules. Lungs: Patchy nodular airspace disease in the right upper and bilateral lower lungs. Heart/Vascular Structures: Normal heart size. Small pericardial effusion. Lymph Nodes: Mediastinal and bilateral hilar lymphadenopathy. Pleura: No pleural effusion or significant pneumothorax. Musculoskeletal: No acute osseous abnormality. Soft tissues: Normal. Upper abdomen: Left renal cyst. IMPRESSION: 1. No pulmonary embolism. 2. Patchy bilateral pneumonia. Small pericardial effusion. Mediastinal and bilateral hilar lymphadenopathy. Clinical correlation and continued follow-up is recommended. 3. Enlarged and heterogeneous thyroid with multiple cysts and nodules. Consider further evaluation with thyroid ultrasound. HS:Y ATED BY: ZAC SPENCE MD DICTATED DATE/TIME: 03/18/24 1514 PATIENT: MATTHEW PRADOCCT: [id number] UNIT: [id number] : 1945 LOC: ER ROOM / BED: / AGE / SEX: 78 / F ADM STATUS: REG ER SERVICE 1003 ORDERING PHYSICIAN: MIKHAIL CASTILLO MD PROCEDURE(s): CXRP - CHEST PORTABLE REASON: sob ORDER NUMBER(s): [id number], ACCESSION NUMBER(s): [id number] EXAM: XY CHEST PORTABLE Indication: sob Technique: Single frontal view of the chest was obtained Comparison: None FINDINGS: Lines and Tubes: None Lungs: No focal consolidation. Pleura: No effusion. No pneumothorax. Cardiomediastinal contours: Unremarkable. Atherosclerotic vascular calcifications of the thoracic aorta are noted. Bones: No acute osseous abnormality. IMPRESSION: No acute cardiopulmonary disease. ATED BY: ISMAEL MEANS MD DICTATED DATE/TIME: 03/18/24 1024 Laboratory Results Test 03/22/24 10:00 03/21/24 12:45 03/21/24 11:03 03/19/24 02:05 Sodium Level 131 mmol/L (136-145) Potassium Level 3.9 mmol/L (3.5-5.1) Chloride Level 97 mmol/L (98-107) Carbon Dioxide Level 31 mmol/L (20-31) Anion Gap 3 (5-15) Blood Urea Nitrogen 11 mg/dL (9-23) Creatinine 0.80 mg/dL (0.550-1.02) Glomerular Filtration Rate Calc 75 mL/min (>90) BUN/Creatinine Ratio 13.8 (10.0-20.0) Serum Glucose 110 mg/dL (74-106) Calcium Level 9.7 mg/dL (8.7-10.4) Magnesium Level 1.6 mg/dL (1.6-2.6) White Blood Count 4.4 10^3/uL (4.4-10.8) Red Blood Count 4.17 10^6/uL (4.0-5.20) Hemoglobin 13.1 g/dL (12.2-16.2) Hematocrit 38.0 % (36.0-46.0) Mean Corpuscular Volume 91.2 fL (80.0-100.0) Mean Corpuscular Hemoglobin 31.4 pg (28.0-32.0) Mean Corpuscular Hemoglobin Concent 34.4 g/dL (32.0-36.0) Red Cell Distribution Width 14.3 % (11.8-14.3) Platelet Count 174 10^3/uL (140-450) Mean Platelet Volume 8.8 fL (6.9-10.8) Neutrophils (%) (Auto) 67.0 % (37.0-80.0) Lymphocytes (%) (Auto) 16.1 % (10.0-50.0) Monocytes (%) (Auto) 13.0 % (0.0-12.0) Eosinophils (%) (Auto) 3.1 % (0.0-7.0) Basophils (%) (Auto) 0.8 % (0.0-2.0) Neutrophils # (Auto) 2.9 10 ^3/uL (1.6-8.6) Lymphocytes # (Auto) 0.7 10 ^3/uL (0.4-5.4) Monocytes # (Auto) 0.6 10 ^3/uL (0-1.3) Eosinophils # (Auto) 0.1 10 ^3/uL (0-0.8) Basophils # (Auto) 0 10 ^3/uL (0-0.2) Nucleated Red Blood Cells 0.1 % Total Bilirubin 0.7 mg/dL (0.2-1.0) Aspartate Amino Transferase (AST) 38 U/L (13-40) Alanine Aminotransferase (ALT) 37 U/L (7-40) Alkaline Phosphatase 179 U/L (46-116) Total Protein 7.8 g/dL (5.7-8.2) Albumin 3.7 g/dL (3.2-4.8) Thyroid Stimulating Hormone (TSH) 4.19 uIU/mL (0.55-4.78) Influenza Type A Antigen Negative (Negative) Influenza Type B Antigen Negative (Negative) SARS-CoV-2 Antigen (Rapid) Negative (NEGATIVE) Test 03/18/24 13:56 03/18/24 10:00 Troponin I High Sensitivity 10 ng/L (</=34) Prothrombin Time 10.8 sec (9.3-11.8) Prothrombin Time INR 1.02 (0.9-1.15) Activated Partial Thromboplast Time 28.3 SEC (24.5-34.5) D-Dimer, Quantitative 0.98 mg/L FEU (0.0-0.49) B-Type Natriuretic Peptide 228.86 pg/mL (0-100) Other Laboratory Tests 03/22/24 10:00 03/21/24 11:03 Brief Hx & Hospital Course: Hospital course This 78-year-old female with past medical history of HTN, DM, HLD, asthma and arthritis presented to [facility] ED on 03/18/2024 with complaint of shortness of breaths. Patient reported that her symptoms progressively became worse with shortness of breaths at rest. Thus prompting the patient to come to the ED. Of note, the patient was here on 03/15/2024 with similar presentation of shortness of breaths where she had tested positive for COVID. Denied fever chills nausea shortness of breath at home. However, she mentioned that when she presented to the ED she was found to have a little bit of fever. In the ED, initial vitals were normal. Laboratory data showed WBC 6.0, platelets 135, sodium 131, potassium 3.5, BUN 8, creatinine 0.89, GFR 66, glucose 108, D-dimer 0.98, AST 60, ALT 49, BNP 228.86, troponin 10. CT Angiography revealed patchy bilateral pneumonia, small pericardial effusion, mediastinal bilateral hilar lymphadenopathy, enlarged and heterogeneous thyroid with multiple cysts and nodules; no pulmonary embolism. Patient was managed for pneumonia and acute respiratory failure on IV azithromycin and Ceftriaxone, breathing treatment and 2L oxygen. While on these medication, EKG showed QTc 447. Thus, Azithromycin was discontinued and continued with Ceftriaxone. On examination today, patient feels better and she is able to ambulate off oxygen. Her SpO2 was 99% on room air. Patient is stable for discharge and will go home with antibiotics for 5 days . Examination General Appearance: Alert, Oriented X3, Cooperative, No acute distress on 2L of oxygen HEENT: Atraumatic, PERRLA, EOMI, Mucous membrane moist/pink Respiratory: -->Neck/trachea: Trachea midline, supple. -->mild Crackles L>R, off oxygen Cardiovascular: Regular rate, Normal S1, Normal S2, No murmurs, no chest wall tenderness Abdominal: No distention, no tenderness, bowel sounds present, no scars noted Extremities: No clubbing, No cyanosis, No edema, Normal pulses, No tenderness/swelling Skin: No rashes, No breakdown, No significant lesion Neuro: Normal gait, Normal speech, Strength at 5/5 X4 ext, Normal tone, Sensation intact, Cranial nerves 3-12 NL, Reflexes 2+ Psych/Mental Status: Mental status NL, Mood NL Diagnoses Community acquired pneumonia likely Gram-negative/Gram-positive Acute respiratory failure secondary to pneumonia Transaminitis Bilateral mediastinal lymphadenopathy, likely reactive Hypertension Hyperlipidemia Asthma Diabetes melitus Hyponatremia hypokalemia Anemia Multiple complex thyroid nodules are seen, the most suspicious located in the right thyroid lobe measuring up to 1.9 cm with peripheral calcifications (TR 4). Discharge plans Home with levofloxacin 500mg daily for [address] in 8-12 week to reassess for the lymph node resolution Continue all home medications Report to the discharge clinic in 7 days Endocrinology follow up outpatient Melatonin Patient admonished to return to the ED as soon as possible in case she noticed any changes in her health. she should call 911 and return to the to the ED. Case and discharge plan discussed with Dr. Cole Consults/Reason for consult Reason for Consultation: Pneumonia, acute respiratory distress. Condition at Discharge: Good Final Diagnosis/Problems List Community acquired pneumonia likely Gram-negative/Gram-positive Acute respiratory failure secondary to pneumonia Transaminitis Bilateral mediastinal lymphadenopathy, likely reactive; Repeat CT in 8-12 week to reassess for the lymph node resolution Hypertension Hyperlipidemia Asthma Diabetes melitus Hyponatremia hypokalemia Anemia QTc prolongation whiles on Azithromycin, D/C'ed Azithromycin Discharge Disposition: Home Discharge Instruct/Medications Diet: Regular Activity: No Restrictions, As Tolerated Follow Up/Referral: 7 days Medications: Levofloxacin 500mg x5 days Discharge Statement: "Patient was advised to return to the ER or call 911 if any headaches, dizziness, shortness of breath, chest pain, abdominal pain, bleeding, fevers, or worsening of medical condition. Patient was counseled about treatment plan, medications, possible side effects, patientverbalized understanding. All questions were answered to the best of my ability. This discharge took greater then 30 minutes in planning, reviewing documentation, counseling the patient, and discussing with other team members." ASSESSMENT ASSESSMENT Assessment Community acquired pneumonia likely Gram-negative/Gram-positive Acute respiratory failure secondary to pneumonia Transaminitis Bilateral mediastinal lymphadenopathy, likely reactive; Repeat CT in 8-12 week to reassess for the lymph node resolution Hypertension Hyperlipidemia Asthma Diabetes melitus Hyponatremia hypokalemia Anemia QTc prolongation whiles on Azithromycin, D/C'ed Azithromycin Date of Service: Mar 22, 2024 Billing Provider: MELISSA COLE MD Common Visit Codes: 68747-SIH/OBS DISCH DAY >30min AFUA CONDE RESIDENT Mar 22, 2024 15:19 MELISSA COLE MD Mar 22, 2024 22:01
--- NOTE | 2024-03-22 20:09 | DVHPN2 ---
Progress Note - Dictate Date Seen: Mar 22, 2024 Has the PT tested + for MRSA If YES, has PT been informed?: No Medical Necessity Reason Pt with a Central, PICC or Fol: No Subjective Patient seen and examined at bedside. Remains on supplemental oxygen Overnight events reviewed. vital signs Vital Sign Date Time Temp Pulse Resp B/P (MAP) Pulse Ox O2 Delivery O2 Flow Rate FiO2 03/22/24 17:00 98.1 74 18 139/62 (87) 98 98.1 03/22/24 11:29 Nasal Cannula* 2 28 Total Intake and Output 03/21/24 03/21/24 03/22/24 15:00 23:00 07:00 Intake Total 860 ml 275 ml Output Total 675 ml Balance 185 ml 275 ml medications Current Medications Medications Dose Ordered Sig/Shaista Route Start Time Stop Time Status Last Admin Dose Admin Albuterol 90 mcg TID PRN IN 03/18/24 10:45 Cancel objective Gen.: Patient lying in bed in no apparent distress. On supplemental oxygen. Head: Normocephalic, atraumatic. Eyes: EOMI/PERRLA. Ears: Normal hearing. Normal anatomy. Neck/trachea: Trachea midline, supple. Nose: Normal external anatomy. Mouth: Moist mucous membranes. Chest: Decreased air entry bilaterally. No wheezing or rhonchi. Cardiovascular: Positive S1, positive S2. Regular rate and rhythm. Abdomen: Positive bowel sounds in all 4 quadrants. Soft, non-tender, non- distended. : Deferred. Rectal: Deferred. Skin: Warm, dry. Intact. Extremities: 2+ radial pulses bilaterally. No lower extremity edema. Neuro: Awake, alert, oriented x3. No gross motor or sensory deficits. Cranial nerves II through XII intact. Gait not assessed. laboratory and microbiology Laboratory Tests 03/22/24 10:00 03/21/24 11:03 Test 03/22/24 10:00 Range/Units Serum Glucose 110 H 74-106 mg/dL Assessment/Plan Impression: Acute respiratory distress Pneumonia, likely gram negative Elevated D-dimer, PE ruled out Abnormal LFTs Mediastinal lymphadenopathy Small pericardial effusion Events: Remains on supplemental oxygen, 2 LPM NC Taper O2 as tolerated Continue bronchodilators Continue antibiotics Incentive spirometry Patient is hypotensive - BP in 80s systolic. IV fluids with NS at 125 mL/hr. Monitor renal function Monitor electrolytes. Supplement as necessary. K of 3.9, mag 1.6 Physical therapy. Disposition per hospitalist. Labs and imaging reviewed. Rest of plan as noted below. Plan: Supplemental oxygen Titrate to keep O2 sats above 92%. Taper O2 as tolerated. CT Angiography revealed patchy bilateral pneumonia, small pericardial effusion, mediastinal and bilateral hilar lymphadenopathy, enlarged and heterogeneous thyroid with multiple cysts and nodules; no pulmonary embolism. Continue bronchodilators. Continue antibiotics Lasix on hold due to low BP Monitor renal function. Monitor electrolytes. Supplement as necessary. Monitor ins and outs. DVT prophylaxis - Lovenox. Prognosis: Guarded given patient's multiple co-morbidities. Rest of plan per hospitalist and other consultants. Thank you, Dr. Allen, for allowing me to participate in this patient's care. Further recommendations will depend on the patient's clinical course. Please do not hesitate to contact me if you have any questions or concerns. This medical document was created using an electronic medical record system with [employer] dictation system. Although these documentations are being carefully reviewed, there may still be some phonetic and typographical changes. The errors are purely typographical, due to imperfection on the software program, and do not reflect any compromise in the patient's medical care. Plan discussed with: Patient, Other (KASANDRA Hanna) DALTON LIANG MD Mar 22, 2024 20:09
--- NOTE | 2024-03-23 13:41 | ECG ---
[facility] Test Date: 2024-03-18 Test Time: 11:37:06 Pat Name: MATTHEW PRADO Department: ER Room: 0215T A Gender: F Chief Compliance Officer: DANII : 1945 Requested By: MIKHAIL CASTILLO Order Number: [id number] Reading MD: Cesar Azevedo Measurements Intervals [place] Rate: 77 P: 67 MN: 137 QRS: 70 QRSD: 82 T: 14 QT: 365 QTc: 414 Interpretive Statements Sinus rhythm Low voltage, precordial leads RSR' in V1 or V2, right VCD or RVH Borderline T abnormalities, anterior leads Electronically Signed On 03-25-2024 9:25:35 PST by Cesar Azevedo Please click the below link to view image of tracing.
== END 2024-03-22 17:14 | disposition home or self-care (01) | DRG 177 ==
LOC: ER 09:51 → TELE 21:34 → TELE-CENTR 03-19 18:17
PROVIDERS: ADMIT Internal Medicine Geriatric Medicine; ATTEND Internal Medicine Geriatric Medicine
DX: J15.69 Pneumonia due to other Gram-negative bacteria (principal); I50.31 Acute diastolic (congestive) heart failure; J96.01 Acute respiratory failure with hypoxia; I31.39 Other pericardial effusion (noninflammatory); E87.1 Hypo-osmolality and hyponatremia; J15.9 Unspecified bacterial pneumonia; D64.9 Anemia, unspecified; Z20.822 Contact with and (suspected) exposure to COVID-19; E11.9 Type 2 diabetes mellitus without complications; E78.5 Hyperlipidemia, unspecified; R59.0 Localized enlarged lymph nodes; R74.01 Elevation of levels of liver transaminase levels; I10 Essential (primary) hypertension; J45.909 Unspecified asthma, uncomplicated; E87.6 Hypokalemia; F41.9 Anxiety disorder, unspecified; I95.9 Hypotension, unspecified; Z79.899 Other long term (current) drug therapy
CPT/HCPCS: 36415; 71045; 71275; 76536; 80048; 80053; 83735; 83880; 84132; 84443; 84484; 85025; 85379; 85610; 85730; 87426; 87804; 93005; 93306; 94640; 99291; G0378